=== PATIENT | male | born 1940 | race Caucasian/White ===

== ENCOUNTER 2022-03-21 23:16 | Emergency (ER) | payer MEDICARE, OTHER, SELFPAY ==
[2022-03-21 23:17] VITALS: BP 148/89; PULSE 111; RESP 20; TEMP 36.9; O2SAT 100; BMI 25.7
[2022-03-21 23:33] VITALS: BMI 25.7
--- NOTE | 2022-03-21 23:34 | XR_ITS ---
PROCEDURE INFORMATION: Exam: XR Pelvis Exam date and time: 03/21/2022 11:48 PM Age: 81 years old Clinical indication: Hip pain; Right hip; Prior surgery; Additional info: Leg pain TECHNIQUE: Imaging protocol: Radiologic exam of the pelvis. Views: 1 or 2 view. COMPARISON: CT LUMBAR SPINE WO CON 03/21/2022 11:47 PM FINDINGS: Bones/joints: Right iliac stent. No acute fracture or dislocation. Soft tissues: Unremarkable. Vasculature: Vascular calcifications. IMPRESSION: No acute fracture or dislocation.
--- NOTE | 2022-03-21 23:46 | CT_ITS ---
PROCEDURE INFORMATION: Exam: CT Lumbar Spine Without Contrast Exam date and time: 03/21/2022 11:47 PM Age: 81 years old Clinical indication: Low back pain; Prior surgery; Patient HX: Pain radiating down right leg TECHNIQUE: Imaging protocol: Computed tomography of the lumbar spine without contrast. Radiation optimization: All CT scans at this facility use at least one of these dose optimization techniques: automated exposure control; mA and/or kV adjustment per patient size (includes targeted exams where dose is matched to clinical indication); or iterative reconstruction. COMPARISON: No relevant prior studies available. FINDINGS: Bones/joints: L2-L4 laminectomies. Discs/Spinal canal/Neural foramina: Degenerative changes at L1-L2, L2-L3, and L4-L5 produce moderate spinal stenosis. Advanced degenerative changes of the intervertebral discs at L1-L4. Kidneys and ureters: Low attenuation renal lesions measuring up to 3 cm in diameter are incompletely characterized, but are likely cysts. No followup imaging is warranted. Stomach and bowel: Mild sigmoid diverticulosis without diverticulitis. Appendix: Unremarkable appendix. Urinary bladder: Irregular left urinary bladder wall mass measuring at least 5.8 x 2 cm. Vasculature: Bilateral common iliac arterial stents. The arteries demonstrate severe atherosclerotic disease. Soft tissues: Unremarkable. IMPRESSION: 1. No acute fracture or malalignment of the lumbar spine. 2. Irregular left urinary bladder wall mass measuring at least 5.8 x 2 cm. Malignancy would be most likely. COMMENTS: Consistent with the [employer]'s Incidental Findings Committee white paper (J Am Hoang Radiol 2018): Any incidental renal lesion less than 1 cm or classified as too small to characterize, or any incidental cystic renal lesion characterized as simple-appearing, is likely benign. No follow-up imaging is recommended for these lesions per consensus recommendations based on imaging criteria.
--- NOTE | 2022-03-21 23:49 | PC.NURSE ---
Pt gone to RAD for CT and XRAY
[2022-03-21 23:58] LABS: Alanine Aminotransferase 21 U/L (12-78); Albumin Level 4.5 g/dl (3.5-5.0); Albumin/Globulin Ratio 1.3 (1.1-1.8); Alkaline Phosphatase 80 U/L (38-126); Anion Gap 17.3 mEq/L (5-15); Aspartate Amino Transferase 28 U/L (17-59); Bilirubin,Total 0.4 mg/dl (0.2-1.3); Blood Urea Nitrogen 48 mg/dl (9-20); Calcium 8.9 mg/dl (8.4-10.2); Carbon Dioxide 23 mmol/L (22.0-30.0); Chloride 101 mmol/L (98-107); Creatinine Clearance Estimated 43 mL/min (50-200); Estimated Glomerular Filt Rate 41 ml/min (>60); GFR (African American) 50 ML/MIN (>60); Globulin 3.6 g/dL (1.3-3.2); Glucose 166 mg/dl (74-100); Magnesium 1.7 mg/dl (1.6-2.3); Potassium 4.3 mmoL/L (3.5-5.1); Sodium 137 mmol/L (136-145); Total Protein,Serum 8.1 g/dl (6.3-8.2)
[2022-03-22] LABS: Basophils # 0.1 K/mm3 (0-0.2); Basophils % 1.5 % (0.1-2.0); Eosinophils # 0.1 K/mm3 (0.0-0.4); Eosinophils % 1.3 % (0.1-12.0); Hematocrit 48.6 % (42.0-52.0); Hemoglobin 15.2 g/dL (14.1-18.0); Lymphocytes # 1.3 K/mm3 (0.7-4.5); Lymphocytes % 18.6 % (10-50); Mean Corpuscular HGB Conc 31.3 g/dL (31.8-35.4); Mean Corpuscular Hemoglobin 29.9 pg (27.0-31.2); Mean Corpuscular Volume 95.7 fl (80-94); Mean Platelet Volume 8.4 fl (7.4-10.4); Monocytes # 0.4 K/mm3 (0.1-1.0); Monocytes % 6.2 % (1.7-9.3); Neutrophils # 4.9 K/mm3 (1.8-7.8); Neutrophils % 72.4 % (37.0-80.0); Platelet Count 217 K/mm3 (142-424); Red Blood Count 5.07 M/mm3 (4.60-6.20); White Blood Count 6.7 K/mm3 (4.8-10.8)
--- NOTE | 2022-03-22 | PC.NURSE ---
Pt back from RAD
[2022-03-22 00:03] LABS: C-Reactive Protein 4.3 mg/L (0-4)
[2022-03-22 00:08] VITALS: BP 136/80; PULSE 94; O2SAT 95
--- NOTE | 2022-03-22 00:15 | CT_ITS ---
PROCEDURE INFORMATION: Exam: CT Cervical Spine Without Contrast Exam date and time: 03/22/2022 12:22 AM Age: 81 years old Clinical indication: Neck pain; Additional info: Injury TECHNIQUE: Imaging protocol: Computed tomography of the cervical spine without contrast. Radiation optimization: All CT scans at this facility use at least one of these dose optimization techniques: automated exposure control; mA and/or kV adjustment per patient size (includes targeted exams where dose is matched to clinical indication); or iterative reconstruction. COMPARISON: CR XR SHOULDER RT MIN 2V 03/22/2022 12:12 AM FINDINGS: Bones/joints: No acute fracture. Normal alignment. Discs/Spinal canal/Neural foramina: Degenerative changes at C3-C4 produce severe spinal stenosis. Mastoid air cells: Left mastoidectomy. Salivary glands: Bilateral parotid gland calcifications could be sialoliths. Lungs: Centrilobular emphysema. Soft tissues: Unremarkable. Other findings: Mild anterior subluxation of C4 over C5 likely due to facet arthropathy. IMPRESSION: 1. No acute fracture or malalignment of the cervical spine. 2. Degenerative changes at C3-C4 produce severe spinal stenosis.
--- NOTE | 2022-03-22 00:15 | CT_ITS ---
PROCEDURE INFORMATION: Exam: CT Thoracic Spine Without Contrast Exam date and time: 03/22/2022 12:24 AM Age: 81 years old Clinical indication: Pain in thoracic spine; Additional info: Injury TECHNIQUE: Imaging protocol: Computed tomography of the thoracic spine without contrast. Radiation optimization: All CT scans at this facility use at least one of these dose optimization techniques: automated exposure control; mA and/or kV adjustment per patient size (includes targeted exams where dose is matched to clinical indication); or iterative reconstruction. COMPARISON: CT CERVICAL SPINE WO CON 03/22/2022 12:22 AM FINDINGS: Bones/joints: No acute fracture. Normal alignment. Discs/Spinal canal/Neural foramina: No significant disc protrusion. No severe spinal canal stenosis. No significant neural foraminal narrowing. Soft tissues: Unremarkable. Vasculature: The aorta demonstrates severe atherosclerotic disease. Enlarged pulmonary arteries likely represent chronic pulmonary arterial hypertension. Lungs: Relatively severe centrilobular emphysema. There is a 6 mm right upper lobe nodule image 53 series 4. Bibasilar atelectasis. Patchy right lower lobe opacities may represent aspiration or infection in the appropriate clinical setting. Heart: Coronary artery calcifications. Cardiomegaly. Mitral and aortic valve calcifications. Mediastinum: Stigmata of old granulomatous disease. Gallbladder and bile ducts: Cholelithiasis. IMPRESSION: 1. No acute fracture or malalignment of the thoracic spine. 2. There is a 6 mm right upper lobe nodule image 53 series 4. For patients at low risk (minimal or absent history of smoking and of other known risk factors), recommend CT Chest at 6-12 months, then consider CT Chest at 18-24 months. For patients at high risk (history of smoking or of other known risk factors), recommend CT Chest at 6-12 months, then CT Chest at 18-24 months. (Reference: Jeanne) 3. Patchy right lower lobe opacities may represent aspiration or infection in the appropriate clinical setting. 4. Cholelithiasis. REFERENCES: Jeanne Daniel, et al. Guidelines for Management of Incidental Pulmonary Nodules Detected on CT Images: From the Fleischner Society 2017. Radiology. 2017;284(1):228-243.
[2022-03-22 00:17] LABS: Procalcitonin 0.214 ng/mL (0.0-2.0)
--- NOTE | 2022-03-22 00:17 | XR_ITS ---
PROCEDURE INFORMATION: Exam: XR Right Shoulder Exam date and time: 03/22/2022 12:12 AM Age: 81 years old Clinical indication: Pain; Shoulder; Right; Additional info: Injury TECHNIQUE: Imaging protocol: Radiologic exam of the Right shoulder. Views: 2 or more views. COMPARISON: No relevant prior studies available. FINDINGS: Bones/joints: Status post median sternotomy. No acute fracture or dislocation. Mild calcific tendinosis of the rotator cuff. Soft tissues: Normal. IMPRESSION: 1. No acute fracture or dislocation. 2. Mild calcific tendinosis of the rotator cuff.
--- NOTE | 2022-03-22 00:18 | PC.NURSE ---
Pt gone to RAD for more XRAYs and CTs
[2022-03-22 00:26] LABS: Erythrocyte Sedimentation Rate 16 mm/hr (0-20)
--- NOTE | 2022-03-22 00:33 | PC.NURSE ---
Pt back from RAD
[2022-03-22 00:46] VITALS: BP 128/65; PULSE 113; O2SAT 97
--- NOTE | 2022-03-22 00:46 | PC.NURSE ---
Pt unable to provide urine sample at this time
[2022-03-22 01:10] VITALS: BP 133/72; PULSE 84; O2SAT 96
--- NOTE | 2022-03-22 01:19 | HMH.EDGENADL ---
ED Disposition Clinical Impression: Lumbar radicular pain, Cervical stenosis of spinal canal, Mass of urinary bladder, Weight loss, PVD (peripheral vascular disease) Depression Qualifiers: Depression Type: unspecified Qualified Code(s): F32.A - Depression, unspecified Disposition: Home, Self-Care Condition on Discharge: Fair Instructions: DI for Acute Pain -- Adult Additional Instructions: call pcp and urology in am Prescriptions: predniSONE [Prednisone 20mg Tab] 20 mg PO BID #10 tab Transmission Status: Pending to [id number] Referrals: Alicia Willett APRN [Primary Care Provider] - Dominik Wong MD [Staff Physician] - - Critical Care Critical Care Time: No Attestation: On 03/21/22, the high probability of a clinically significant, sudden or life threatening deterioration of the following system(s) required my full and direct attention, intervention and personal management. The time I documented below is in addition to time spent performing reported procedures but includes the following listed in this critical care notation. Medical Decision Making - Medical Records Medical records reviewed: Yes: I reviewed the patient's medical records. - Francisco Javier Inquiry Pt receiving controlled substance: No Vital Signs: 03/21/22 23:17 03/22/22 00:08 03/22/22 00:46 Temperature 98.5 F Temperature Source Oral Pulse Rate 94 H 113 H Pulse Rate [Left] 111 H Respiratory Rate 20 Blood Pressure 136/80 128/65 Blood Pressure [Right Arm] 148/89 H Blood Pressure Mean 98 Blood Pressure Mean [Right Arm] 108 02 Sat by Pulse Oximetry 100 95 97 Oxygen Delivery Method Room Air Room Air 03/22/22 01:10 Temperature Temperature Source Pulse Rate 84 Pulse Rate [Left] Respiratory Rate Blood Pressure 133/72 Blood Pressure [Right Arm] Blood Pressure Mean Blood Pressure Mean [Right Arm] 02 Sat by Pulse Oximetry 96 Oxygen Delivery Method Room Air - Lab Data Lab results reviewed: Yes: I reviewed the patient's lab results. Lab Results 03/21/22 23:30: WBC 6.7, RBC 5.07, Hgb 15.2, Hct 48.6, MCV 95.7 H, MCH 29.9, MCHC 31.3 L, RDW 15.0, Plt Count 217, MPV 8.4, Neut % (Auto) 72.4, Lymph % (Auto) 18.6, [place] % (Auto) 6.2, Eos % (Auto) 1.3, Baso % (Auto) 1.5, Neut # (Auto) 4.9, Lymph # (Auto) 1.3, [place] # (Auto) 0.4, Eos # (Auto) 0.1, Baso # (Auto) 0.1, ESR 16 03/21/22 23:30: Sodium 137, Potassium 4.3, Chloride 101, Carbon Dioxide 23, Anion Gap 17.3 H, BUN 48 H, Creatinine 1.60 H, Estimated Creat Clear 43, Estimated GFR 41 L, Est GFR ( Amer) 50 L, Glucose 166 H, Calcium 8.9, Magnesium 1.7, Total Bilirubin 0.4, AST 28, ALT 21, Alkaline Phosphatase 80, C-Reactive Protein 4.3 H, Total Protein 8.1, Albumin 4.5, Globulin 3.6 H, Albumin/Globulin Ratio 1.3, Procalcitonin 0.214 Result diagrams: 03/21/22 23:30 03/21/22 23:30 Orders (Tests/Meds): ED MEDICATIONS Generic Name Dose Route Start Last Admin Trade Name Freq PRN Reason Stop Dose Admin Sodium Chloride 1,000 mls @ 999 mls/hr 03/21/22 23:45 03/22/22 00:32 Sod Chlor 0.9% 1000ml Bag IV 03/22/22 00:45 999 mls/hr .Q1H1M MATIAS Administration Sodium Chloride 10 ml 03/21/22 23:34 Sodium Chloride 0.9% 10ml Flush Syringe IV 04/20/22 23:33 NEEDED PRN Maintain IV Site ORDERS Category Date Time Status CT thoracic spine wo con Stat Cat Scan 03/22/22 00:15 Taken Urinalysis and Microscopic Stat Lab 03/21/22 23:34 Ordered - Radiology Data #1 Image(s): Shoulder, Pelvis Image Reviewed: Yes I have reviewed radiologist's interpretation Preliminary Findings: Abnormal - CT Data CT Scan: C-Spine, T-Spine, L-Spine Time Received: 01:[address] Reviewed: Yes: I have viewed the radiologist's interpretation Preliminary Findings: Abnormal (bladder mass ) Medical Decision Narrative: pt with acute lumbar radicular pain - not assoc with act - but has some element of caludication - no cauda equina but has d
[2022-03-22 01:51] VITALS: BP 133/72; PULSE 84; RESP 18; TEMP 36.8; O2SAT 99
== END 2022-03-22 02:04 | disposition home or self-care (01) ==
PROVIDERS: Emergency Provider Emergency Medicine; PCP Nurse Practitioner Family
DX: M54.16 Radiculopathy, lumbar region (principal); M48.02 Spinal stenosis, cervical region; N32.9 Bladder disorder, unspecified; R63.4 Abnormal weight loss; I73.9 Peripheral vascular disease, unspecified; F32.A Depression, unspecified; Z68.25 Body mass index [BMI] 25.0-25.9, adult
CPT/HCPCS: 72125; 72128; 72131; 72170; 73030; 80053; 83735; 84145; 85025; 85651; 86140; 96365; 96375; 99284

== ENCOUNTER 2022-04-19 12:18 | Inpatient (IN) | payer MEDICARE, OTHER, SELFPAY ==
[2022-04-19] VITALS (14 sets, daily range): BP systolic 108–156; BP diastolic 61–91; PULSE 78–108; RESP 13–27; TEMP 36.6–37.2; O2SAT 97–99; BMI 24.1; BMI 24.4; BMI 24.5; BMI 23.6
--- NOTE | 2022-04-19 11:37 | PC.NURSE ---
BLOOD SENT TO LAB
--- NOTE | 2022-04-19 11:55 | XR_ITS ---
FINAL REPORT CLINICAL HISTORY: weakness FINDINGS: A single portable view of the chest was obtained. There are postoperative changes from median sternotomy. The heart size and pulmonary vascularity are within normal limits. The mediastinum is within normal limits. There are bibasilar opacities favoring atelectasis or scarring. The bony thorax is intact. IMPRESSION: Bibasilar opacities favoring atelectasis or scarring. Reviewed, Interpreted and Dictated by Sim Hernandez III, MD Transcribed by Misty Wang Authenticated and . [facility]
--- NOTE | 2022-04-19 11:57 | CT_ITS ---
FINAL REPORT CLINICAL HISTORY: confusion FINDINGS: Axial images of the head were obtained without contrast. Coronal reformatted images were also obtained. This study was performed with techniques to keep radiation doses as low as reasonably achievable (ALARA). Individualized dose reduction techniques using automated exposure control or adjustment of mA and/or kV according to the patient's size were employed. There is generalized age-appropriate atrophy. Periventricular low-attenuation areas are seen consistent with mild chronic ischemic changes. There is no evidence of intracranial hemorrhage or mass. There is no evidence of acute infarct. There is no evidence of shift of the midline structures. No skull abnormality is seen on the bone window images. IMPRESSION: Atrophy and mild periventricular chronic ischemic changes. No acute intracranial abnormality identified. Reviewed, Interpreted and Dictated by Sim Hernandez III, MD Transcribed by Misty Wang Authenticated and . [facility]
[2022-04-19 12:11] LABS: Basophils # 0.2 K/mm3 (0-0.2); Basophils % 2.4 % (0.1-2.0); Eosinophils % 0.2 % (0.1-12.0); Hematocrit 49.5 % (42.0-52.0); Hemoglobin 15.8 g/dL (14.1-18.0); Lymphocytes # 0.9 K/mm3 (0.7-4.5); Lymphocytes % 9.9 % (10-50); Mean Corpuscular Hemoglobin 30.7 pg (27.0-31.2); Mean Platelet Volume 8.6 fl (7.4-10.4); Monocytes # 0.4 K/mm3 (0.1-1.0); Monocytes % 4.4 % (1.7-9.3); Neutrophils # 7.2 K/mm3 (1.8-7.8); Platelet Count 237 K/mm3 (142-424); Red Blood Count 5.16 M/mm3 (4.60-6.20); White Blood Count 8.7 K/mm3 (4.8-10.8)
--- NOTE | 2022-04-19 12:14 | PC.NURSE ---
PT REQUESTING SOMETHING FOR HIS NERVES
[2022-04-19 12:19] LABS: Chloride 103 mmol/L (98-107); Sodium 138 mmol/L (136-145)
[2022-04-19 12:22] LABS: Alanine Aminotransferase 21 U/L (12-78); Albumin Level 4.8 g/dl (3.5-5.0); Alkaline Phosphatase 93 U/L (38-126); Aspartate Amino Transferase 30 U/L (17-59); Bilirubin,Total 1.1 mg/dl (0.2-1.3); Blood Urea Nitrogen 55 mg/dl (9-20); Carbon Dioxide 23 mmol/L (22.0-30.0); Creatinine Clearance Estimated 33 mL/min (50-200); Estimated Glomerular Filt Rate 32 ml/min (>60); GFR (African American) 39 ML/MIN (>60)
[2022-04-19 12:23] LABS: Albumin/Globulin Ratio 1.4 (1.1-1.8); Calcium 9.8 mg/dl (8.4-10.2); Globulin 3.4 g/dL (1.3-3.2); Glucose 108 mg/dl (74-100); Total Protein,Serum 8.2 g/dl (6.3-8.2)
--- NOTE | 2022-04-19 12:27 | HMH.EDGENADL ---
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 The time I documented below is in addition to time spent performing reported procedures but includes the following listed in this critical care notation. Medical Decision Making - Medical Records Medical records reviewed: Yes: I reviewed the patient's medical records. MR Comment: Reviewed emergency department visit note from 1 month ago for the same complaint at this facility. Reviewed associated CT reports, x-ray reports, labs. - Francisco Javier Inquiry Pt receiving controlled substance: No Vital Signs: 04/19/22 11:19 04/19/22 11:30 04/19/22 12:01 Temperature 98 F Temperature Source Oral Pulse Rate 107 H 104 H Pulse Rate [Radial] 108 H Respiratory Rate 16 13 27 H Blood Pressure 109/74 L 114/75 Blood Pressure [Right Arm] 110/91 H Blood Pressure Mean 85 88 Blood Pressure Mean [Right Arm] 97 Blood Pressure Position Blood Pressure Position [Right Arm] Sitting 02 Sat by Pulse Oximetry 98 98 99 Oxygen Delivery Method Room Air 04/19/22 13:01 04/19/22 13:31 04/19/22 14:00 Temperature Temperature Source Pulse Rate 98 H 99 H 97 H Pulse Rate [Radial] Respiratory Rate Blood Pressure 127/75 124/79 138/66 Blood Pressure [Right Arm] Blood Pressure Mean 82 94 90 Blood Pressure Mean [Right Arm] Blood Pressure Position Blood Pressure Position [Right Arm] 02 Sat by Pulse Oximetry 99 97 98 Oxygen Delivery Method Room Air Room Air 04/19/22 14:30 04/19/22 15:01 04/19/22 15:41 Temperature Temperature Source Pulse Rate 96 H 104 H 97 H Pulse Rate [Radial] Respiratory Rate Blood Pressure 132/65 147/70 H 156/90 H Blood Pressure [Right Arm] Blood Pressure Mean 87 80 112 Blood Pressure Mean [Right Arm] Blood Pressure Position Blood Pressure Position [Right Arm] 02 Sat by Pulse Oximetry 97 97 99 Oxygen Delivery Method 04/19/22 16:01 04/19/22 16:31 04/19/22 17:08 Temperature 98 F Temperature Source Oral Pulse Rate 99 H 99 H 78 Pulse Rate [Radial] Respiratory Rate 16 Blood Pressure 126/63 152/72 H 132/71 Blood Pressure [Right Arm] Blood Pressure Mean 84 85 Blood Pressure Mean [Right Arm] Blood Pressure Position Sitting Blood Pressure Position [Right Arm] 02 Sat by Pulse Oximetry 97 98 Oxygen Delivery Method Room Air - Lab Data Lab Results 04/19/22 11:10: WBC 8.7, RBC 5.16, Hgb 15.8, Hct 49.5, MCV 96.0 H, MCH 30.7, MCHC 32.0, RDW 15.0, Plt Count 237, MPV 8.6, Neut % (Auto) 83.0 H, Lymph % (Auto) 9.9 L, [place] % (Auto) 4.4, Eos % (Auto) 0.2, Baso % (Auto) 2.4 H, Neut # (Auto) 7.2, Lymph # (Auto) 0.9, [place] # (Auto) 0.4, Eos # (Auto) 0.0, Baso # (Auto) 0.2 04/19/22 11:10: Sodium 138, Potassium 5.0, Chloride 103, Carbon Dioxide 23, Anion Gap 17.0 H, BUN 55 H, Creatinine 2.00 H, Estimated Creat Clear 33, Estimated GFR 32 L, Est GFR ( Amer) 39 L, Glucose 108 H, Calcium 9.8, Total Bilirubin 1.1, AST 30, ALT 21, Alkaline Phosphatase 93, Troponin I 0.04 H, Total Protein 8.2, Albumin 4.8, Globulin 3.4 H, Albumin/Globulin Ratio 1.4 04/19/22 11:10: APTT 34.4 H 04/19/22 15:00: Troponin I 0.03 04/19/22 15:00: SARS-CoV-2 (PCR) Not detected, Influenza A Untype (PCR) Not detected, Influenza Type B (PCR) Not detected Result diagrams: 04/19/22 11:10 04/19/22 11:10 Orders (Tests/Meds): ED MEDICATIONS Generic Name Dose Route Start Last Admin Trade Name Freq PRN Reason Stop Dose Admin Acetaminophen 650 mg 04/19/22 16:24 Acetaminophen 325mg Tab PO 05/19/22 16:23 Q4HP PRN Fever or Mild Pain Hydrocodone Bitart/Acetaminophen 1 ta
--- NOTE | 2022-04-19 12:30 | PC.NURSE ---
pt to radiology via stretcher with communications technologist
[2022-04-19 12:33] LABS: Troponin I 0.04 ng/ml (0.00-0.034)
--- NOTE | 2022-04-19 12:41 | INFXCTL.NOTE ---
SANDRA RUBIO at for patient eval
--- NOTE | 2022-04-19 12:51 | CT_ITS ---
FINAL REPORT TECHNIQUE: Axial imaging of the pelvis was obtained without contrast.This study was performed with techniques to keep radiation doses as low as reasonably achievable, (ALARA). Individualized dose reduction technique using automated exposure control or adjustment of mA and/or kV according to the patient's size were employed. CLINICAL HISTORY: pain FINDINGS: Motion artifact limits exam sensitivity at the level of the proximal femurs. Bilateral iliac artery stents are in place. There are moderate to severe degenerative changes of the lower lumbar spine. There are moderate degenerative changes of the right hip and mild degenerative changes of the left hip. There is no acute fracture or dislocation. Femoral heads are located bilaterally. Soft tissues demonstrate no acute abnormality. Sacral ala are intact. Bilateral iliac artery stents are in place. There are severe arterial calcifications including near-total calcification of the right common femoral artery. There is a large amount of stool in the rectum worrisome for fecal impaction. IMPRESSION: No acute bony abnormality of the pelvis. 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 Large amount of stool in the rectum worrisome for fecal impaction. Reviewed, Interpreted and Dictated by Sim Hernandez III, MD Transcribed by Enedina Roberts Authenticated and . [facility]
--- NOTE | 2022-04-19 12:51 | CT_ITS ---
FINAL REPORT TECHNIQUE: Thin section axial CT images of the right hip with coronal and sagittal reformats were performed. This study was performed with techniques to keep radiation doses as low as reasonably achievable (ALARA). Individualized dose reduction techniques using automated exposure control or adjustment of mA and/or kV according to the patient''s size were employed. CLINICAL HISTORY: pain FINDINGS: There are no fractures. There are no masses or fluid collections. There are no soft tissue abnormalities. There are moderate degenerative changes. Severe calcification is seen of the common femoral artery, proximal SFA and profundus consistent with high-grade stenosis or occlusion. IMPRESSION: No acute bony abnormality. Moderate to severe degenerative changes. High-grade stenosis or occlusion of the common femoral artery, proximal SFA and profundus. Reviewed, Interpreted and Dictated by Sim Hernandez III, MD Transcribed by Enedina Roberts Authenticated and [facility]
--- NOTE | 2022-04-19 12:57 | ECG_ITS ---
APPROVED REPORT Exam: Resting ECG HR:98 bpm ECG Measurements Heart Rate 98 AXES MA 183 P 63 QRSd 145 QRS 233 QT 372 T 57 QTc 427 Conclusion SINUS RHYTHM INDETERMINATE AXIS RIGHT BUNDLE BRANCH BLOCK AND POSSIBLE RIGHT VENTRICULAR HYPERTROPHY [RBBB, 1.5 mV R IN V1, RAD] LEFT POSTERIOR FASCICULAR BLOCK [QRS AXIS > 109, INFERIOR Q] ABNORMAL ECG UNCONFIRMED REPORT Electronically signed by : Riley Rogers MD 04/20/2022 21:41:17
--- NOTE | 2022-04-19 13:00 | PC.NURSE ---
Friend at BS
--- NOTE | 2022-04-19 14:51 | PC.NURSE ---
DR VARGAS SPEAKING WITH DR SENA
[2022-04-19 15:07] LABS: Coronavirus 19, PCR Not Detected (NotDetected); Influenza A, PCR Not Detected (NotDetected); Influenza B, PCR Not Detected (NotDetected)
--- NOTE | 2022-04-19 15:08 | PC.NURSE ---
spoke with Kenia, Care Management regarding patient admission
--- NOTE | 2022-04-19 15:13 | HMH.PHAHEP ---
[facility] Heparin Dosing - Demographic Data Admission date:: 04/19/22 Date: 04/19/22 Time: 15:13 Allergies/Adverse Reactions: Allergies Allergy/AdvReac Type Severity Reaction Status Date / Time No Known Allergies Allergy Unverified 04/19/22 15:44 Height: 1.83 m Weight: 81.647 kg - Indication Medication therapy:: Heparin Patient Problems: Current Active Problems Lumbar radicular pain (Acute) PVD (peripheral vascular disease) (Acute) Occlusion of common femoral artery (Acute) CVA?: No Bleeding problem?: No Kidney disease?: No IN?: No Additional History:: PVD Desired PTT range:: Other (50-75 SECONDS) - Labs Anticoagulation Lab Results:: 04/19/22 11:10 Hgb 15.8 Hct 49.5 Plt Count 237 - Monitoring Dose Monitor 1 Date: 04/19/22 Time: 15:14 PTT Result:: 04/19/22 @ 15:14 - BASELINE ORDERED, PENDING RESULT 04/19/22 @ 16:00 - BASELINE PTT 34.4 SECONDS Infusion Rate:: INITIATE HEPARIN DRIP AND BOLUS, GIVE 70 UNITS/KG BOLUS IV = 5000 UNIT HEPARIN IV BOLUS ONCE START HEPARIN DRIP AT 1400 UNITS/HOUR = 28 ML/HOUR GIVEN PATIENT WEIGHS GREATER THAN 66 KG. Dose Monitor 2 Date: 04/19/22 Time: 21:30 PTT Result:: 149 SECONDS Infusion Rate:: NIGHTWATCH DECREASED HEPARIN DRIP RATE BY ~3 UNITS/KG/HOUR TO 1200 UNITS/HOUR = 24 ML/HOUR Dose Monitor 3 Date: 04/19/22 Time: 23:29 PTT Result:: 156.7 SECONDS Infusion Rate:: NIGHTWATCH DECREASED HEPARIN DRIP RATE BY 3 UNITS/KG/HOUR TO 950 UNITS/HOUR = 19 ML/HOUR Dose Monitor 4 Date: 04/20/22 Time: 06:00 PTT Result:: 88.2 SECONDS Infusion Rate:: NIGHTWATCH DECREASED HEPARIN DRIP RATE BY ~2 UNITS/KG/HOUR TO 800 UNITS/HOUR = 16 ML/HOUR Dose Monitor 5 Date: 04/20/22 Time: 12:10 PTT Result:: 57.5 SECONDS Infusion Rate:: CONTINUE CURRENT RATE OF 800 UNITS/HOUR = 16 ML/HOUR; PATIENT DOWN TO [employer]. Comment:: PATIENT DOWN TO [employer] AND HAD A PERIPHERAL BARE METAL STENT PLACED. PATIENT RETURNED TO THE FLOOR AND WAS STARTED ON PLAVIX AND ASPIRIN. - Core Measures Is INR > or = 2 at discharge?: No Most Recent Labs:: Laboratory Results - last 24 hr 04/19/22 11:10: WBC 8.7, RBC 5.16, Hgb 15.8, Hct 49.5, MCV 96.0 H, MCH 30.7, MCHC 32.0, RDW 15.0, Plt Count 237, MPV 8.6, Neut % (Auto) 83.0 H, Lymph % (Auto) 9.9 L, [place] % (Auto) 4.4, Eos % (Auto) 0.2, Baso % (Auto) 2.4 H, Neut # (Auto) 7.2, Lymph # (Auto) 0.9, [place] # (Auto) 0.4, Eos # (Auto) 0.0, Baso # (Auto) 0.2 04/19/22 11:10: Sodium 138, Potassium 5.0, Chloride 103, Carbon Dioxide 23, Anion Gap 17.0 H, BUN 55 H, Creatinine 2.00 H, Estimated Creat Clear 33, Estimated GFR 32 L, Est GFR ( Amer) 39 L, Glucose 108 H, Calcium 9.8, Total Bilirubin 1.1, AST 30, ALT 21, Alkaline Phosphatase 93, Troponin I 0.04 H, Total Protein 8.2, Albumin 4.8, Globulin 3.4 H, Albumin/Globulin Ratio 1.4 If INR was < than 2.0 why was therapy stopped?: PERIPHERAL BARE METAL STENT PLACED IN [employer], STARTED ON PLAVIX AND ASA Were Heparin and Warfarin started on the same day?: No If not, why?: PERIPHERAL BARE METAL STENT PLACED IN [employer], STARTED ON PLAVIX AND ASA
[2022-04-19 15:25] LABS: PTT Heparin (inpatient only) 34.4 Seconds (23.6-34.0)
--- NOTE | 2022-04-19 15:42 | PC.NURSE ---
PT AMBULATED TO BR WITH ASSISTANCE
[2022-04-19 15:43] LABS: Troponin I 0.03 ng/ml (0.00-0.034)
--- NOTE | 2022-04-19 15:43 | HMH.PHAINT ---
MEDICATION RECONCILIATION COMPLETED ON PATIENT USING EXTERNAL FILL HISTORY FROM PHARMACY. -LANCE CUMMINS, VLADD
--- NOTE | 2022-04-19 16:29 | P.CONPHA_ITS ---
[facility] Pharmacy VTE Monitoring - Patient Demographics Admission date: 04/19/22 Report Date: 04/19/22 Time: 16:29 Allergies/Adverse Reactions: Patient Allergies No Known Allergies Allergy (Unverified 04/19/22 15:44) Height: 1.83 m Weight: 81.647 kg Patient Problems: Current Active Problems Occlusion of common femoral artery (Acute) - VTE Risk Labs: VTE Related Lab Results Hgb 15.8 g/dL (14.1-18.0) 04/19/22 11:10 Hct 49.5 % (42.0-52.0) 04/19/22 11:10 Plt Count 237 K/mm3 (142-424) 04/19/22 11:10 APTT 34.4 Seconds (23.6-34.0) H 04/19/22 11:10 BUN 55 mg/dl (9-20) H 04/19/22 11:10 Creatinine 2.00 mg/dl (0.66-1.25) H 04/19/22 11:10 Estimated Creat Clear 33 mL/min (50-200) 04/19/22 11:10 - Prophylaxis VTE Prophylaxis Ordered?: Yes Types of VTE Prophylaxis: Pharmacological Pharmacologic Type: Heparin
--- NOTE | 2022-04-19 16:30 | PC.NURSE ---
report called to floor
--- NOTE | 2022-04-19 17:08 | PC.NURSE ---
Pt arrived to the floor at this time
[2022-04-19 18:31] LABS: Troponin I 0.04 ng/ml (0.00-0.034)
--- NOTE | 2022-04-19 19:38 | PC.NURSE ---
patient arrived to unit on heparin drip; tolerating well; no s/s of acute distress noted, VSS, A&O x3, did eat some of dinner, bed at lowest level for safety, call light in reach, will continue to monitor.
--- NOTE | 2022-04-19 22:22 | PC.NURSE ---
pt's aptt critical at 149; notiifed night watch and was instructed by Kaylan Woods to decrease drip to 1200units/hr (from 1400units/hr) and redraw another aptt in one hour; notified MD Diaz with critical result and what night watch stated to do, no new orders at this time
[2022-04-20] VITALS (46 sets, daily range): BP systolic 101–167; BP diastolic 47–104; PULSE 52–104; RESP 16–24; TEMP 36.3–36.7; O2SAT 92–99; BMI 24.3
--- NOTE | 2022-04-20 | PC.NURSE ---
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
--- NOTE | 2022-04-20 | IR_ITS ---
APPROVED REPORT Patient Location: Outpatient Injection Molding Machine Tender: ANSHUL Holder RT (R) PROCEDURES Left femoral arterial access Left femoral artery retrograde angiogram Bare-metal stent deployment to the left common iliac artery Bare-metal stent deployment to the left external iliac artery Bare-metal stent deployment to the left common femoral artery Catheter placement in the right common femoral artery Right femoral artery selective antegrade angiogram Attempted angioplasty to the right common iliac artery INDICATION Critical limb threatening ischemia, Extensive calcification and peripheral artery disease of the left common and external iliac arteries and plaque in critical disease in the left common femoral artery, 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 COMPLICATIONS None Estimated Blood Loss: Less than 10 ML TECHNIQUE 1% lidocaine used to anesthetize the left femoral groin. The left femoral artery was accessed via the Seldinger technique. There was difficulty getting in the heavily calcified artery. A regular J-wire would not traverse the calcification therefore an advantage wire was used to traverse and negotiate through the critical stenoses. Retrograde angiography demonstrated extensive calcification with severe to critical common and external iliac disease. Therapeutic heparin was administered and the 5 [place] sheath was exchanged for a 6 [place] sheath. A 7 mm x 100 mm balloon was deployed up and down the common and external iliac artery as well as brought back into the proximal common femoral artery. Following this an 8 mm x 57 mm bare-metal balloon mounted stent was deployed at 14 mirella reducing the critical stenosis. An additional 8 mm x 100 mm self-expanding stent was placed distal to this extending back into the left common femoral artery. An 8 mm balloon was then placed back in the self-expanding and balloon mounted stent and then deployed at 14 mirella. Eventually there was reduction of the critical disease which allowed a rim catheter to be advanced to the right common iliac artery where right common iliac artery angiography was performed. The rim catheter was advanced over the advantage into the right common femoral artery where antegrade angiography was performed. There was extensive and massive calcification which extended throughout the femoral artery and into the proximal and mid superficial femoral artery. Despite multiple manipulations the calcification cannot be traversed. The apparatus was removed patient was transferred to postop holding area for postoperative care and sheath removal ANGIOGRAPHIC RESULTS The left common iliac artery is extensively calcified critically stenosed greater than 90% and has a stent in the midsegment. The external iliac artery is critically calcified with extensive calcifications and severe disease. The left internal iliac artery is patent. The left common femoral artery has proximal extensive eccentric calcified lesions which are spherical. The right common iliac artery is calcified but patent as is the right external iliac artery. The right internal iliac artery is patent. The right common femoral artery is extensively massively critically calcified throughout which extends down into the proximal and mid superficial femoral artery. IMPRESSION Severe to critical disease to the left iliofemoral system with successful stenting and revascularization of the left iliofemoral system reducing the stenoses with 2 bare-metal stents 1 being balloon mounted to the other being self-expanding Persistent critical disease in the right co
[2022-04-20 00:41] LABS: PTT Heparin (inpatient only) 156.7 Seconds (23.6-34.0)
--- NOTE | 2022-04-20 00:51 | PC.NURSE ---
pt's aPTT result 156.7, notified night watch, Remington with night watch instructed rn to decrease heparin drip rate to 950units/hr and recheck another aPTT in 4 hours, notified MD Diaz of critical lab and what night watch stated to do, no new orders at this time
[2022-04-20 06:22] LABS: Chloride 108 mmol/L (98-107); Potassium 4.7 mmoL/L (3.5-5.1); Sodium 137 mmol/L (136-145)
[2022-04-20 06:25] LABS: Anion Gap 10.7 mEq/L (5-15); Blood Urea Nitrogen 57 mg/dl (9-20); Calcium 8.9 mg/dl (8.4-10.2); Carbon Dioxide 23 mmol/L (22.0-30.0); Creatinine Clearance Estimated 35 mL/min (50-200); Estimated Glomerular Filt Rate 34 ml/min (>60); GFR (African American) 41 ML/MIN (>60); Glucose 112 mg/dl (74-100)
[2022-04-20 06:43] LABS: POC Glucose,Bedside 136 (70-110)
[2022-04-20 06:43] LABS: POC Glucose,Bedside 100 (70-110)
[2022-04-20 06:43] LABS: POC Glucose,Bedside 101 (70-110)
--- NOTE | 2022-04-20 06:54 | PC.NURSE ---
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
[2022-04-20 07:16] LABS: PTT Heparin (inpatient only) 88.2 Seconds (23.6-34.0)
--- NOTE | 2022-04-20 07:22 | PC.NURSE ---
Paged on-call pharmacist Remington, notified of aptt 88.2. told to decrease heparin drip to 800 units/hr and run at 16 ml/hr and repeat aptt in 4 hours
--- NOTE | 2022-04-20 07:39 | PC.NURSE ---
Verified with Awilda Blancharder new rate change to 16 ml/hr
--- NOTE | 2022-04-20 08:54 | HMH.HP ---
*Admission Date: 04/19/22 *Chief complaint: Back pain *History of present illness: 81-year-old male patient presents to the [facility] emergency room via EMS for reports of lower back pain radiating through right buttock into right thigh for 1 month. Family friend is present reports he has been complaining of this for several days and was unable to walk today and EMS was activated. ER physician discussed with Dr. Deleon and he recommends moderate dose heparin drip, admission, he plans to do a cath in the morning. Patient agreeable. Heparin drip started 04/19/2022 abdomen/pelvis CT: FINDINGS: Motion artifact limits exam sensitivity at the level of the proximal femurs. Bilateral iliac artery stents are in place. There are moderate to severe degenerative changes of the lower lumbar spine. There are moderate degenerative changes of the right hip and mild degenerative changes of the left hip. There is no acute fracture or dislocation. Femoral heads are located bilaterally. Soft tissues demonstrate no acute abnormality. Sacral ala are intact. Bilateral iliac artery stents are in place. There are severe arterial calcifications including near-total calcification of the right common femoral artery. There is a large amount of stool in the rectum worrisome for fecal impaction. IMPRESSION: No acute bony abnormality of the pelvis. 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 Large amount of stool in the rectum worrisome for fecal impaction. Reviewed, Interpreted and Dictated by Sim Hernandez III, MD [facility] History I have reviewed the patient's past medical history: Yes Medical History: Reports:: Diabetes Mellitus Type 2, Hyperlipidemia, Hypertension Denies:: Cancer, Diabetes Mellitus Type 1, MRSA *Have you ever received a pneumonia vaccine?: Yes *Have you received a flu vaccine this season?: Yes Other Surgeries: Yes: Cardiac Catheterization Amputation: No Fractures: No - *Social History Last grade of school completed: Some college Smoking Status: Unknown if ever smoked Alcohol Intake: never *Occupational Status:: retired Housing: house Household Members: none *Travel in the last 8 weeks: None Family Hx:: No significant family history Review of Systems - Review of Systems Review of systems:: pertinent systems reviewed and negative unless documented below - Constitutional Denies fatigue, Denies lack of energy - Eyes Denies blurry vision, Denies double vision - ENT Denies poor balance, Denies difficulty swallowing - *Cardiovascular Denies chest pain, Denies chest pain at rest, Denies shortness of breath - *Respiratory Denies change in phlegm color, Denies cough, Denies shortness of breath - *Gastrointestinal Denies abdominal pain, Denies change in stools, Denies nausea - *Musculoskeletal Reports abnormal walking, Reports back pain, Denies muscle weakness - Integumentary/Breasts Denies change in skin color, Denies wounds - *Neurologic Reports abnormal walking, Reports confusion, Reports memory loss, Reports numbness, Reports sensory deficit Comments: Decree sensation feet right greater than left - Psychiatric Reports memory loss, Denies anxiety, Denies hearing things others do not hear, Denies seeing things others do not see - Endocrine Denies cold intolerance, Denies increased thirst - Hematologic/Lymphatic Denies easy bleeding, Denies easy bruising - Allergic/Immunologic Denies GI upset with certain foods, Denies wheezing Meds Home Medications Medication Instructions Recorded Confirmed Type Amlodipine Besylate [Amlodipine 10 mg PO DAILY 03/22/22 04/19/22 History 10mg Tab] Enalapril/Hydrochlorothiazide 1 each PO BID 03/22/22 04/19/22 History [Enalapril-Hctz 10-25 mg Tablet] Hydrocodone/Acetaminophen 1 tab PO QID 03/22/22 04/19/22 History [Hydrocodone-Acetamin 7.5-325] Levothyroxine Sodium [Synthro
--- NOTE | 2022-04-20 10:30 | HMH.CNCARD ---
History of Present Illness Consult date: 04/20/22 Requesting physician: Konstantin Diaz Chief complaint: pain-vascular occlusion Additional Medical History:: Significant past medical history: Hypertension DM2 PAD-bilateral iliac artery stents History of present illness: ER MD OLIVARES narrative: Patient is brought in by ambulance. He is a poor historian. History supplemented by a friend who helps take care of him. Patient reports that he has been having problems with pain which he locates is being in his right buttock area radiating down his right leg for 1 month. Friend reports that he was so bad today he could not get up and walk around. Denies any recent injury. He is on chronic pain medication but is not obtaining enough relief. Patient was seen in this emergency department 1 month ago for exactly the same complaint. Had an extensive work-up including CT of his cervical, lumbar, thoracic spine, x-ray of pelvis and right shoulder. He says he has followed up with his primary care provider, says he was seen last week. Per his previous record he has a known bladder mass. Patient tells me that he does have a history of bladder cancer. Cards note: Patient poor historian information obtained from chart and patient: 81-year-old white male with significant past medical history as noted above presented to ER yesterday with complaints of right hip pain radiating down the lateral right thigh x1 month. Patient denies any prior history of trauma to leg. Describes pain as progressive and worsening especially during ambulation. CT of hip showed moderate generative changes and high-grade stenosis or occlusion of the right common femoral artery, proximal SFA, and profunda. CT of pelvis was negative for any acute bony abnormalities did show possible fecal impaction. Creatinine was initially 2, has improved to 1.9. Troponins negative. Patient admitted for cardiovascular eval. denies any chest pain or shortness of breath [facility] History Medical History: Reports:: Diabetes Mellitus Type 2, Hyperlipidemia, Hypertension Denies:: Cancer, Diabetes Mellitus Type 1, MRSA *Have you ever received a pneumonia vaccine?: Yes *Have you received a flu vaccine this season?: Yes Other Surgeries: Yes: Cardiac Catheterization Amputation: No Fractures: No - *Social History Last grade of school completed: Some college Smoking Status: Unknown if ever smoked Alcohol Intake: never *Occupational Status:: retired Housing: house Household Members: none *Travel in the last 8 weeks: None Family Hx:: No significant family history Meds Home Medications Medication Instructions Recorded Confirmed Type Amlodipine Besylate [Amlodipine 10 mg PO DAILY 03/22/22 04/19/22 History 10mg Tab] Enalapril/Hydrochlorothiazide 1 each PO BID 03/22/22 04/19/22 History [Enalapril-Hctz 10-25 mg Tablet] Hydrocodone/Acetaminophen 1 tab PO QID 03/22/22 04/19/22 History [Hydrocodone-Acetamin 7.5-325] Levothyroxine Sodium [Synthroid 50 mcg PO DAILY 03/22/22 04/19/22 History 50mcg (0.05mg) tab] glipiZIDE [Glipizide ER] 10 mg PO DAILY 03/22/22 04/19/22 History Furosemide [Furosemide 20mg Tab*] 20 mg PO DAILY 04/19/22 04/19/22 History Allergies Allergy/AdvReac Type Severity Reaction Status Date / Time No Known Allergies Allergy Unverified 04/19/22 15:44 Exam Vital signs and Labs for Last 24 Hours: Temp Pulse Resp BP Pulse Ox 98.1 F 80 24 157/80 H 98 04/20/22 08:00 04/20/22 08:00 04/20/22 08:00 04/20/22 08:00 04/20/22 08:00 Laboratory Results - last 24 hr 04/19/22 11:10: WBC 8.7, RBC 5.16, Hgb 15.8, Hct 49.5, MCV 96.0 H, MCH 30.7, MCHC 32.0, RDW 15.0, Plt Count 237, MPV 8.6, Neut % (Auto) 83.0 H, Lymph % (Auto) 9.9 L, [place] % (Auto) 4.4, Eos % (Auto) 0.2, Baso % (Auto) 2.4 H, Neut # (Auto) 7.2, Lymph # (Auto) 0.9, [place] # (Auto) 0.4, Eos # (Auto) 0.0, Baso # (Auto) 0.2 04/19/22 11:10: Sodium 138, Potassium 5.0, Chloride 103, Carbon Diox
[2022-04-20 13:36] LABS: PTT Heparin (inpatient only) 57.5 Seconds (23.6-34.0)
[2022-04-20 14:31] LABS: CATHL Activated Clotting Time 255 SEC (74-125)
[2022-04-20 14:32] LABS: CATHL Activated Clotting Time 110 SEC (74-125)
[2022-04-20 14:45] LABS: POC Glucose,Bedside 97 (70-110)
--- NOTE | 2022-04-20 15:05 | PC.NURSE ---
late entry. rounded on patient before heart cath. no concerns or questions noted. did assist with shaving groin. noted some redness in groin area. no needs voiced.
[2022-04-20 16:19] LABS: POC Glucose,Bedside 88 (70-110)
--- NOTE | 2022-04-20 18:58 | PC.NURSE ---
Patient up from lab analyst, left groin site intact, no evidence of hematoma. VS stable and patient remained on room air.
--- NOTE | 2022-04-20 19:54 | PC.NURSE ---
Patient's ex- Negrita Gibson requested to be called by the doctor to be updated on patient status. her number is [phone]
[2022-04-21] VITALS (10 sets, daily range): BP systolic 107–147; BP diastolic 48–74; PULSE 70–110; RESP 16–20; TEMP 36.5–37; O2SAT 92–97; BMI 24.4
--- NOTE | 2022-04-21 04:00 | PC.NURSE ---
pt rested some through the night with intermittent complaints of pain to RLE buttocks to ankle that comes and goes ; pt rates pain 8/10; pt post cath run off, dressing to right groin CDI with no hematoma or drainage noted, fagan catheter to bsd with dark red urine noted with sediment, reported from previous shift that catheter was hard to insert and pt with enlarged prostate, skin pwd, +pedal pulses noted bilaterally, cap refill <3 sec, pink and warm to touch, pt up to side of bed without difficulty, pt stood at side of bed without difficulty with use of cane and assist x1; telemetry reveals NSR, sinus tach; pt a+o x4; no other issues noted at this time.
[2022-04-21 06:38] LABS: POC Glucose,Bedside 102 (70-110)
[2022-04-21 07:19] LABS: Chloride 112 mmol/L (98-107); Potassium 5.2 mmoL/L (3.5-5.1); Sodium 141 mmol/L (136-145)
[2022-04-21 07:22] LABS: Alanine Aminotransferase 18 U/L (12-78); Albumin Level 3.6 g/dl (3.5-5.0); Albumin/Globulin Ratio 1.3 (1.1-1.8); Alkaline Phosphatase 63 U/L (38-126); Anion Gap 9.2 mEq/L (5-15); Aspartate Amino Transferase 30 U/L (17-59); Bilirubin,Total 0.6 mg/dl (0.2-1.3); Calcium 8.9 mg/dl (8.4-10.2); Carbon Dioxide 25 mmol/L (22.0-30.0); Globulin 2.7 g/dL (1.3-3.2); Glucose 117 mg/dl (74-100); Total Protein,Serum 6.3 g/dl (6.3-8.2)
[2022-04-21 07:27] LABS: Blood Urea Nitrogen 41 mg/dl (9-20); Creatinine Clearance Estimated 47 mL/min (50-200); Estimated Glomerular Filt Rate 48 ml/min (>60); GFR (African American) 59 ML/MIN (>60)
[2022-04-21 07:32] LABS: Basophils % 0.3 % (0.1-2.0); Eosinophils # 0.1 K/mm3 (0.0-0.4); Eosinophils % 0.9 % (0.1-12.0); Hematocrit 39.2 % (42.0-52.0); Hemoglobin 12.6 g/dL (14.1-18.0); Lymphocytes # 0.5 K/mm3 (0.7-4.5); Lymphocytes % 9.3 % (10-50); Mean Corpuscular HGB Conc 32.1 g/dL (31.8-35.4); Mean Corpuscular Hemoglobin 30.3 pg (27.0-31.2); Mean Corpuscular Volume 94.4 fl (80-94); Mean Platelet Volume 8.8 fl (7.4-10.4); Monocytes # 0.5 K/mm3 (0.1-1.0); Monocytes % 8.4 % (1.7-9.3); Neutrophils # 4.4 K/mm3 (1.8-7.8); Neutrophils % 81.1 % (37.0-80.0); Platelet Count 153 K/mm3 (142-424); Red Blood Count 4.15 M/mm3 (4.60-6.20); Red Cell Distribution Width 15.1 % (11.5-17.5); White Blood Count 5.4 K/mm3 (4.8-10.8)
--- NOTE | 2022-04-21 09:00 | PC.NURSE ---
I spoke to Dr. Mejia regarding pt bleeding into fagan cath. Clots noted and it is deep red. He reports he will speak to Dr. Deleon regarding whether we will hold the plavix. awaiting to hear back
--- NOTE | 2022-04-21 09:21 | HMH.ACPN2 ---
Internal Medicine - PN: Subj *Date: 04/21/22 *Time: 09:21 Interval history: pt with sig pvd and off hep but has gross hematuria - pt with improved pain - Exam Vital signs and Labs for Last 24 Hours: Temp Pulse Resp BP Pulse Ox 98.0 F 107 H 18 147/67 H 97 04/21/22 07:55 04/21/22 07:55 04/21/22 07:55 04/21/22 07:55 04/21/22 07:55 Laboratory Results - last 24 hr 04/20/22 11:51: POC Glucose 97 04/20/22 12:10: APTT 57.5 H* 04/20/22 13:32: Activated Clotting Time 110 04/20/22 13:35: Activated Clotting Time 255 H* D 04/20/22 16:06: POC Glucose 88 04/21/22 06:31: POC Glucose 102 04/21/22 06:40: WBC 5.4 D, RBC 4.15 L, Hgb 12.6 L, Hct 39.2 L, MCV 94.4 H, MCH 30.3, MCHC 32.1, RDW 15.1, Plt Count 153 D, MPV 8.8, Neut % (Auto) 81.1 H, Lymph % (Auto) 9.3 L, [place] % (Auto) 8.4, Eos % (Auto) 0.9, Baso % (Auto) 0.3, Neut # (Auto) 4.4, Lymph # (Auto) 0.5 L, [place] # (Auto) 0.5, Eos # (Auto) 0.1, Baso # (Auto) 0.0 04/21/22 06:40: Sodium 141, Potassium 5.2 H, Chloride 112 H, Carbon Dioxide 25, Anion Gap 9.2, BUN 41 H D, Creatinine 1.40 H D, Estimated Creat Clear 47, Estimated GFR 48 L, Est GFR ( Amer) 59 D, Glucose 117 H, Calcium 8.9, Total Bilirubin 0.6, AST 30, ALT 18, Alkaline Phosphatase 63, Total Protein 6.3, Albumin 3.6, Globulin 2.7, Albumin/Globulin Ratio 1.3 I & O for Last 24 hours: Intake & Output 04/18/22 04/19/22 04/20/22 04/21/22 11:59 11:59 11:59 11:59 Intake Total 3281 / 3281 Output Total 2625 / 2625 3000 / 3000 Balance -2625 / -2625 281 / 281 Weight 180 lb 183 lb 1.6 oz 184 lb 1 oz - Constitutional no acute distress - *Routine HEENT Exam Head: Present: normocephalic Eye: Present: EOMI, PERRL ENT: Present: mucous membranes dry - *Routine Neck Exam Absent: JVD - *Routine Respiratory Exam Present: decreased breath sounds - *Routine Cardiovascular Exam Present: RRR, murmur, S4 - *Routine Abdominal Exam Present: soft - *Routine Exam Comments: hematuria in fagan - *Routine Extremities Exam Present: pulses intact. Absent: extremity cold to touch - *Routine Skin Exam Present: intact - *Routine Neurological Exam Present: alert, CN II-XII intact. 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
--- NOTE | 2022-04-21 09:58 | PC.NURSE ---
did not give plavix
--- NOTE | 2022-04-21 10:36 | PC.NURSE ---
pts pulses to ronan feet are strong and palpable. ronan lower ext are warm and no edema is present
[2022-04-21 11:28] LABS: POC Glucose,Bedside 194 (70-110)
--- NOTE | 2022-04-21 11:36 | PC.NURSE ---
pt has been up multiple times to go to the bathroom. he has not had a bowel movement @ this time. i put some barrier cream on his bottom due to soreness. there is nothing open. i put a pillow under him and he reports improvement
[2022-04-21 17:30] LABS: POC Glucose,Bedside 233 (70-110)
[2022-04-22] VITALS (10 sets, daily range): BP systolic 121–145; BP diastolic 66–89; PULSE 70–115; RESP 16–18; TEMP 36.3–36.9; O2SAT 98–99; BMI 24.1
[2022-04-22 02:22] LABS: POC Glucose,Bedside 165 (70-110)
--- NOTE | 2022-04-22 05:07 | PC.NURSE ---
Pt has had an uneventful night. Pt alert and oriented x 4. Pulses to bilateral lower extremities are palpable. No discoloration to BLE. BLE warm to touch. Pt has been up to bathroom with assist. Pt is voiding dark red urine per fagan cath. No clots noted at this time. Pt has rested well this shift. States he feels much better. Call light in reach. Bed alarm on for safety.
[2022-04-22 06:09] LABS: POC Glucose,Bedside 136 (70-110)
--- NOTE | 2022-04-22 07:42 | PC.NURSE ---
pt is agitated this morning. he dislodged his iv and is refusing to let me put a new one back in. will try again after breakfast
--- NOTE | 2022-04-22 09:46 | HMH.ACPN2 ---
Internal Medicine - PN: Subj *Date: 04/23/22 *Time: 06:34 Interval history: doing better - still with hematuria - trial w/o fagan Exam Vital signs and Labs for Last 24 Hours: Temp Pulse Resp BP Pulse Ox 97.6 F 109 H 18 134/89 98 04/22/22 07:41 04/22/22 07:41 04/22/22 07:41 04/22/22 07:41 04/22/22 07:41 Laboratory Results - last 24 hr 04/21/22 11:16: POC Glucose 194 H 04/21/22 16:41: POC Glucose 233 H 04/21/22 21:02: POC Glucose 165 H 04/22/22 06:00: POC Glucose 136 H I & O for Last 24 hours: Intake & Output 04/19/22 04/20/22 04/21/22 04/22/22 11:59 11:59 11:59 11:59 Intake Total 3281 / 3281 1620 / 1620 Output Total 2625 / 2625 3000 / 3000 1500 / 1500 Balance -2625 / -2625 281 / 281 120 / 120 Weight 180 lb 183 lb 1.6 oz 184 lb 1 oz 182 lb 5 oz - Constitutional no acute distress - *Routine HEENT Exam Head: Present: normocephalic Eye: Present: EOMI, PERRL ENT: Present: mucous membranes dry - *Routine Neck Exam Absent: JVD - *Routine Respiratory Exam Present: decreased breath sounds - *Routine Cardiovascular Exam Present: RRR, murmur - *Routine Abdominal Exam Present: soft - *Routine Extremities Exam Absent: calf tenderness - *Routine Skin Exam Present: intact - *Routine Neurological Exam Present: alert, CN II-XII intact - Routine Psychiatric Exam Present: cooperative Assessment and Plan (1) Occlusion of common femoral artery Status: Acute Category: Medical Code(s): I70.209 - Unspecified atherosclerosis of [place] arteries of extremities, unspecified extremity (2) Lumbar radicular pain Status: Acute Category: Medical Code(s): M54.16 - Radiculopathy, lumbar region (3) PVD (peripheral vascular disease) Status: Acute Category: Medical Code(s): I73.9 - Peripheral vascular disease, unspecified (4) 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
[2022-04-22 10:25] LABS: Chloride 109 mmol/L (98-107); Potassium 4.3 mmoL/L (3.5-5.1); Sodium 138 mmol/L (136-145)
[2022-04-22 10:28] LABS: Alanine Aminotransferase 17 U/L (12-78); Albumin Level 3.7 g/dl (3.5-5.0); Albumin/Globulin Ratio 1.4 (1.1-1.8); Alkaline Phosphatase 63 U/L (38-126); Anion Gap 8.3 mEq/L (5-15); Aspartate Amino Transferase 26 U/L (17-59); Bilirubin,Total 0.4 mg/dl (0.2-1.3); Blood Urea Nitrogen 41 mg/dl (9-20); Carbon Dioxide 25 mmol/L (22.0-30.0); Creatinine Clearance Estimated 47 mL/min (50-200); Estimated Glomerular Filt Rate 48 ml/min (>60); GFR (African American) 59 ML/MIN (>60); Globulin 2.6 g/dL (1.3-3.2); Total Protein,Serum 6.3 g/dl (6.3-8.2)
[2022-04-22 10:29] LABS: Calcium 8.8 mg/dl (8.4-10.2); Glucose 174 mg/dl (74-100)
[2022-04-22 10:32] LABS: Basophils % 0.5 % (0.1-2.0); Eosinophils % 0.4 % (0.1-12.0); Hematocrit 38.3 % (42.0-52.0); Hemoglobin 12.3 g/dL (14.1-18.0); Lymphocytes # 0.6 K/mm3 (0.7-4.5); Lymphocytes % 11.1 % (10-50); Mean Corpuscular HGB Conc 32.2 g/dL (31.8-35.4); Mean Corpuscular Hemoglobin 30.5 pg (27.0-31.2); Mean Corpuscular Volume 94.9 fl (80-94); Mean Platelet Volume 8.5 fl (7.4-10.4); Monocytes # 0.4 K/mm3 (0.1-1.0); Neutrophils # 4.5 K/mm3 (1.8-7.8); Platelet Count 145 K/mm3 (142-424); Red Blood Count 4.04 M/mm3 (4.60-6.20); Red Cell Distribution Width 15.1 % (11.5-17.5); White Blood Count 5.6 K/mm3 (4.8-10.8)
--- NOTE | 2022-04-22 17:41 | PC.NURSE ---
pt has not voided since fagan removal @10am. 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
--- NOTE | 2022-04-22 17:51 | PC.NURSE ---
Spoke with . Will continue to monitor pt until approx 2100 to see if he is able to void. if unable will anchor fagan. pt does not want fagan placed @ this time and wants an opportunity to void on his own
--- NOTE | 2022-04-22 19:03 | PC.NURSE ---
lg BM. soft formed
--- NOTE | 2022-04-22 21:30 | PC.NURSE ---
16F coude catheter inserted at this time. slight difficulty with insertion. pt tolerated ok. 625 ml dark red/tea colored urine drained and emptied.
--- NOTE | 2022-04-22 21:39 | PC.NURSE ---
dr rivas called for update on patient regarding voiding, informed dr rivas pt was unable to void and a 16fr coude catheter was inserted with dark brown/red colored urine noted, informed about 700-800ml in fagan bag noted, no new orders received at this time.
[2022-04-22 22:19] LABS: Microscopic, Urine URINE MICROSCOPIC (MICROSCOPIC)
[2022-04-22 22:24] LABS: Appearance,Urine TURBID (Clear); Blood, Urine 3+ (Negative); Color,Urine BROWN (Yellow); Glucose,Urine (UA) Negative (Negative); Ketones,Urine TRACE (Negative); Leukocyte Esterase,Urine 1+ (Negative); Nitrate,Urine POSITIVE (Negative); PH,Urine 6.5 (5.0-8.5); Protein,Urine 2+ (Negative); RBC,Urine TNTC #/hpf (0-3); Specific Gravity, Urine 1.025 (1.005-1.030); Squamous Epithelial Cell,Urine Occasional #/hpf (0-5); WBC,Urine 20-50 #/hpf (0-3)
[2022-04-22 22:25] LABS: Bilirubin,Urine Negative (Negative)
[2022-04-23] VITALS (7 sets, daily range): BP systolic 125–162; BP diastolic 58–80; PULSE 80–125; RESP 18–20; TEMP 36.1–36.7; O2SAT 94–98; BMI 24.0; BMI 23.9
--- NOTE | 2022-04-23 04:19 | PC.NURSE ---
pt has rested well this shift. he is a&o X4. Left femoral cath site dressing in place c/d/i. Bilateral pedis pulses +1 strength. BLE pink, and warm. Pt ambulated to BR with cane and 1 assist last night to attempt to void. coude cath was inserted at 2130, it is draining dark red/tea colored urine. Call light within reach, bed alarm on and functioning, no needs at this time
--- NOTE | 2022-04-23 06:12 | PC.NURSE ---
urine noted to be a brighter red color than the dark red/brown color after insertion. no clots noted.
[2022-04-23 07:09] LABS: Basophils % 0.6 % (0.1-2.0); Eosinophils # 0.1 K/mm3 (0.0-0.4); Eosinophils % 1.6 % (0.1-12.0); Hematocrit 39.3 % (42.0-52.0); Hemoglobin 12.8 g/dL (14.1-18.0); Lymphocytes # 0.8 K/mm3 (0.7-4.5); Mean Corpuscular HGB Conc 32.4 g/dL (31.8-35.4); Mean Corpuscular Hemoglobin 29.9 pg (27.0-31.2); Mean Corpuscular Volume 92.3 fl (80-94); Mean Platelet Volume 9.5 fl (7.4-10.4); Monocytes # 0.4 K/mm3 (0.1-1.0); Monocytes % 8.1 % (1.7-9.3); Neutrophils % 74.6 % (37.0-80.0); Platelet Count 169 K/mm3 (142-424); Red Blood Count 4.26 M/mm3 (4.60-6.20); Red Cell Distribution Width 15.2 % (11.5-17.5); White Blood Count 5.4 K/mm3 (4.8-10.8)
[2022-04-23 07:12] LABS: Anion Gap 10.6 mEq/L (5-15); Blood Urea Nitrogen 39 mg/dl (9-20); Calcium 8.9 mg/dl (8.4-10.2); Carbon Dioxide 22 mmol/L (22.0-30.0); Chloride 107 mmol/L (98-107); Creatinine Clearance Estimated 50 mL/min (50-200); Estimated Glomerular Filt Rate 53 ml/min (>60); GFR (African American) 64 ML/MIN (>60); Glucose 152 mg/dl (74-100); Potassium 4.6 mmoL/L (3.5-5.1); Sodium 135 mmol/L (136-145)
--- NOTE | 2022-04-23 09:49 | FL_ITS ---
FINAL REPORT TECHNIQUE: Approximately 150 mL of Cystografin contrast was administered through the patient's existing Liu catheter. Spot and overhead films were performed. A total of 19 images were saved. CLINICAL HISTORY: . HEMATURIA 150ML CYSTOGRAFFIN 2:15 FLUORO TIME COMPARISON: None. FINDINGS: Safety Professional film demonstrates significant vascular calcifications. The urinary bladder is extremely trabeculated. There is no leak of contrast identified. There is significant reflux of contrast into the left ureter and into the left kidney. The urethra is not evaluated on this examination. Fluoroscopy time: 2 minutes 15 seconds. IMPRESSION: Trabeculated appearance of the urinary bladder. Significance left-sided reflux. No leak of contrast. Reviewed, Interpreted and Dictated by Sim Hernandez III, MD Transcribed by Angie Saldana PA-C Authenticated and [facility]
--- NOTE | 2022-04-23 09:49 | HMH.ACPN2 ---
Internal Medicine - PN: Subj *Date: 04/23/22 *Time: 13:01 Interval history: oob in chair with fagan with hematuria - had retention after trial yesterday w/o fagan - labs ok - cystogram today showed changes and prev ct showed possible lt sided bladder wall thickening Exam Vital signs and Labs for Last 24 Hours: Temp Pulse Resp BP Pulse Ox 98 F 125 H 20 157/80 H 96 04/23/22 08:00 04/23/22 08:00 04/23/22 08:00 04/23/22 08:00 04/23/22 08:00 Laboratory Results - last 24 hr 04/22/22 10:00: WBC 5.6, RBC 4.04 L, Hgb 12.3 L, Hct 38.3 L, MCV 94.9 H, MCH 30.5, MCHC 32.2, RDW 15.1, Plt Count 145, MPV 8.5, Neut % (Auto) 80.0, Lymph % (Auto) 11.1, [place] % (Auto) 8.0, Eos % (Auto) 0.4, Baso % (Auto) 0.5, Neut # (Auto) 4.5, Lymph # (Auto) 0.6 L, [place] # (Auto) 0.4, Eos # (Auto) 0.0, Baso # (Auto) 0.0 04/22/22 10:00: Sodium 138, Potassium 4.3, Chloride 109 H, Carbon Dioxide 25, Anion Gap 8.3, BUN 41 H, Creatinine 1.40 H, Estimated Creat Clear 47, Estimated GFR 48 L, Est GFR ( Amer) 59, Glucose 174 H, Calcium 8.8, Total Bilirubin 0.4, AST 26, ALT 17, Alkaline Phosphatase 63, Total Protein 6.3, Albumin 3.7, Globulin 2.6, Albumin/Globulin Ratio 1.4 04/22/22 21:40: Urine Color Brown, Urine Appearance Turbid, Urine pH 6.5, Ur Specific [place] 1.025, Urine Protein 2+, Urine Glucose (UA) Negative, Urine Ketones Trace, Urine Blood 3+, Urine Nitrate Positive, Urine Bilirubin Negative, Urine Urobilinogen 2.0, Ur Leukocyte Esterase 1+ A, Urine RBC Tntc, Urine WBC 20-50, Ur Squamous Epith Cells Occasional 04/23/22 06:55: WBC 5.4, RBC 4.26 L, Hgb 12.8 L, Hct 39.3 L, MCV 92.3, MCH 29.9, MCHC 32.4, RDW 15.2, Plt Count 169, MPV 9.5, Neut % (Auto) 74.6, Lymph % (Auto) 15.0, [place] % (Auto) 8.1, Eos % (Auto) 1.6, Baso % (Auto) 0.6, Neut # (Auto) 4.0, Lymph # (Auto) 0.8, [place] # (Auto) 0.4, Eos # (Auto) 0.1, Baso # (Auto) 0.0 04/23/22 06:55: Sodium 135 L, Potassium 4.6, Chloride 107, Carbon Dioxide 22, Anion Gap 10.6, BUN 39 H, Creatinine 1.30 H, Estimated Creat Clear 50, Estimated GFR 53 L, Est GFR ( Amer) 64, Glucose 152 H, Calcium 8.9 I & O for Last 24 hours: Intake & Output 04/20/22 04/21/22 04/22/22 04/23/22 11:59 11:59 11:59 11:59 Intake Total 3281 / 3281 1860 / 1860 2016 Output Total 2625 / 2625 3000 / 3000 2700 / 2700 2625 / 2625 Balance -2625 / -2625 281 / 281 -840 / -840 -608 / -608 Weight 183 lb 1.6 oz 184 lb 1 oz 182 lb 5 oz 180 lb 12.465 oz - Constitutional no acute distress - *Routine HEENT Exam Head: Present: normocephalic Eye: Present: EOMI, PERRL ENT: Present: mucous membranes dry - *Routine Neck Exam Absent: JVD - *Routine Respiratory Exam Present: CTA bilaterally - *Routine Cardiovascular Exam Present: RRR, murmur, S4 - *Routine Abdominal Exam Present: soft - *Routine Extremities Exam Absent: calf tenderness - *Routine Skin Exam Present: intact - *Routine Neurological Exam Present: alert, CN II-XII intact - Routine Psychiatric Exam Present: cooperative Assessment and Plan (1) Occlusion of common femoral artery Status: Acute Category: Medical Code(s): I70.209 - Unspecified atherosclerosis of [place] arteries of extremities, unspecified extremity (2) Lumbar radicular pain Status: Acute Category: Medical Code(s): M54.16 - Radiculopathy, lumbar region (3) PVD (peripheral vascular disease) Status: Acute Category: Medical Code(s): I73.9 - Peripheral vascular disease, unspecified (4) 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
--- NOTE | 2022-04-23 10:29 | HMH.PNCARD ---
<Lila Newell - Last Filed: 04/23/22 10:56> Subjective Date: 04/23/22 Time: 10:00 Principal diagnosis: PAD Interval history: This is an 81-year-old white gentleman who presented to the emergency department with complaints of pain in his right buttocks that was radiating down the lateral right thigh. He states that this had significantly worsened over the last month. The patient underwent runoff with Dr. Deleon and he was able to stent his left iliofemoral system with 2 bare-metal stents. However the patient had persistent right common femoral and right SFA disease that was not amendable to percutaneous intervention. Dr. Deleon does not feel like this will be able to be intervened on surgically as well. The patient may ultimately end up with a right [id number]-yrw-frce amputation. This morning he is still complaining of numbness in the right buttocks going down his right leg. He denies any chest pain or pressure. He denies any shortness of breath or edema. He denies any fever, chills, nausea, vomiting, diarrhea, PND or orthopnea. The patient does have hematuria noted. He reported to have a known bladder mass with a history of bladder cancer. Exam Vital signs and Labs for Last 24 Hours: Temp Pulse Resp BP Pulse Ox 98 F 125 H 20 157/80 H 96 04/23/22 08:00 04/23/22 08:00 04/23/22 08:00 04/23/22 08:00 04/23/22 08:00 Laboratory Results - last 24 hr 04/22/22 10:00: WBC 5.6, RBC 4.04 L, Hgb 12.3 L, Hct 38.3 L, MCV 94.9 H, MCH 30.5, MCHC 32.2, RDW 15.1, Plt Count 145, MPV 8.5, Neut % (Auto) 80.0, Lymph % (Auto) 11.1, [place] % (Auto) 8.0, Eos % (Auto) 0.4, Baso % (Auto) 0.5, Neut # (Auto) 4.5, Lymph # (Auto) 0.6 L, [place] # (Auto) 0.4, Eos # (Auto) 0.0, Baso # (Auto) 0.0 04/22/22 10:00: Carbon Dioxide 25, Anion Gap 8.3, BUN 41 H, Creatinine 1.40 H, Estimated Creat Clear 47, Estimated GFR 48 L, Est GFR ( Amer) 59, Glucose 174 H, Calcium 8.8, Total Bilirubin 0.4, AST 26, ALT 17, Alkaline Phosphatase 63, Total Protein 6.3, Albumin 3.7, Globulin 2.6, Albumin/Globulin Ratio 1.4 04/22/22 21:40: Urine Color Brown, Urine Appearance Turbid, Urine pH 6.5, Ur Specific [place] 1.025, Urine Protein 2+, Urine Glucose (UA) Negative, Urine Ketones Trace, Urine Blood 3+, Urine Nitrate Positive, Urine Bilirubin Negative, Urine Urobilinogen 2.0, Ur Leukocyte Esterase 1+ A, Urine RBC Tntc, Urine WBC 20-50, Ur Squamous Epith Cells Occasional 04/23/22 06:55: WBC 5.4, RBC 4.26 L, Hgb 12.8 L, Hct 39.3 L, MCV 92.3, MCH 29.9, MCHC 32.4, RDW 15.2, Plt Count 169, MPV 9.5, Neut % (Auto) 74.6, Lymph % (Auto) 15.0, [place] % (Auto) 8.1, Eos % (Auto) 1.6, Baso % (Auto) 0.6, Neut # (Auto) 4.0, Lymph # (Auto) 0.8, [place] # (Auto) 0.4, Eos # (Auto) 0.1, Baso # (Auto) 0.0 04/23/22 06:55: Sodium 135 L, Potassium 4.6, Chloride 107, Carbon Dioxide 22, Anion Gap 10.6, BUN 39 H, Creatinine 1.30 H, Estimated Creat Clear 50, Estimated GFR 53 L, Est GFR ( Amer) 64, Glucose 152 H, Calcium 8.9 I & O for Last 24 hours: Intake & Output 04/20/22 04/21/22 04/22/22 04/23/22 23:59 23:59 23:59 23:59 Intake Total 1789 / 1789 2212 / 2212 2260 / 2260 897 / 897 Output Total 2950 / 3650 2800 / 2800 2225 / 2725 1999 Balance -1161 / -1861 -588 / -588 35 / -465 -1103 / -1103 Weight 183 lb 1.6 oz 184 lb 1 oz 182 lb 5 oz 180 lb 12.465 oz - Constitutional no acute distress, average body habitus - *Routine HEENT Exam Head: Present: normocephalic, atraumatic Eye: Present: EOMI, PERRL ENT: Present: mucous membranes moist - *Routine Neck Exam Present: supple, full ROM, normal carotid upstroke. Absent: JVD, carotid bruit, lymphadenopathy - *Routine Respiratory Exam Present: CTA bilaterally - *Routine Cardiovascular Exam Present: RRR, Normal S1, Normal S2. Absent: murmur - *Routine Abdominal Exam Present: soft, normoactive bowel sounds. Absent: tenderness, distended - *Routine Extremities Exam Present: full ROM, pulses intact (Diminished pedal pulses bilaterally), no
--- NOTE | 2022-04-23 11:29 | HMH.OTEV ---
OT Inpatient Evaluation Rehab OT IP Evaluation Start: 04/23/22 08:26 Freq: ONCE Status: Complete Protocol: Document 04/23/22 11:23 MARQUISJONNY (Rec: 04/23/22 11:29 MARQUISJONNY [id number]) Rehab OT IP Assessment Subjective History 81-year-old male patient presents to the [facility] emergency room via EMS for reports of lower back pain radiating through right buttock into right thigh for 1 month. Family friend is present reports he has been complaining of this for several days and was unable to walk today and EMS was activated. ER physician discussed with Dr Stevie Deleon and he recommends moderate dose heparin drip, admission, he plans to do a cath in the morning. Patient agreeable. Heparin drip started 04/19/2022 abdomen/pelvis CT: FINDINGS: Motion artifact limits exam sensitivity at the level of the proximal femurs. Bilateral iliac artery stents are in place. There are moderate to severe degenerative changes of the lower lumbar spine. There are moderate degenerative changes of the right hip and mild degenerative changes of the left hip. There is no acute fracture or dislocation. Femoral heads are located bilaterally. Soft tissues demonstrate no acute abnormality. Sacral ala are intact. Bilateral iliac artery stents are in place. There are severe arterial calcifications including near-tot
--- NOTE | 2022-04-23 11:39 | HMH.PTEV ---
Physical Therapy Evaluation Rehab PT IP Evaluation Start: 04/23/22 08:25 Freq: ONCE Status: Active Protocol: Document 04/23/22 11:23 MERLINE (Rec: 04/23/22 11:38 MERLINE [id number]) Subjective/History History History This is the initial IP PT eval for Patrick Gibson, a 81 y/o male. Pt was admitted to [facility] via EMS to which he reported low back pain, with radiating pain into RLE. CT findings of high-grade stenosis or occlusion of R common femoral artery. PT has h/o DM Type II, hyperlipidemia , and hypertension. Written by Vicki Al, QING Subjective Subjective Pt required redirection when taking Hx. Pt reports he is living alone in a first-story apartment. Reports he has family members check in on him , but not consistently. Pt reported that he has been looking into transitioning to assisted living facility. Prior to admission, pt used a cane. Rehab PT IP Eval Objective Appearance Patient Behavior Cooperative,Distractible, Talkative,Wandering Patient Orientation Person,Place,Year,Situation Difficulty following instructions none Speech Pattern Clear,Rambling Ambulation Patient Able to Ambulate Yes Ambulation Observation IP General Gait Pattern Observation Wide Based Gait,Shuffling Step Ambulation Distance (feet) 20 Ambulation Assistive Device Straight Cane Ambulation Ability Minimal x 2 (25% assist) Balance Ability to Arise Able, uses arms to help Sitting Balance Steady, safe Standing Balance Steady, wide stance Dynamic Sitting Balance Ability Fair Dynamic Standing Balance Ability Fair Transfers Chair Transfer Ability Independent,Supervision/Stand by Sit to Stand Chair Transfer Ability Minimal x 2 (25% assist) Rehab PT IP prob,goals,plan Problems Date of Evaluation: 04/23/22 PT IP Problems Transfers,Gait,Balance,Self care,Safety Rehab Potential Rehab Potential Fair Equipment Needs Assistive Devices Straight Cane Plan PT Intervention Plan Transfers,Gait,Balance
--- NOTE | 2022-04-23 11:56 | SW/DCPLANNER ---
Addendum entered by Awilda Engle 04/24/22 14:59: I have also faxed patient information to [facility] to see if patient is a candidate for meals at home. Addendum entered by Awilda Engle 04/24/22 11:45: Chani gayle/ [facility] stated that services will begin 04/26/22. Addendum entered by Awilda Engle 04/24/22 10:30: Patient information/order has been faxed to Chani gayle/ [facility] home health services. The plan for this patient is to discharge home today. I will follow up with Chani once patient information is reviewed. Original Note: I spoke with this patient regarding plans once medically stable for discharge. Patient stated that he resides in first floor apartment alone with friends and neighbors that check on his often. PT evaluated this patient this AM and has recommended home health services. Patient is agreeable to home health once medically stable for discharge. Patient could potentially discharge later today. Patient did have a friend present at time of my visit that he stated himself and his check on patient often. Patient stated that he will have transportation home once medically stable for discharge. I will set up home health services at time of discharge. Friend: Ryan Linares [phone]
--- NOTE | 2022-04-23 13:19 | ECG_ITS ---
APPROVED REPORT Exam: Resting ECG HR:97 bpm ECG Measurements Heart Rate 97 AXES ME 169 P 81 QRSd 138 QRS 198 QT 360 T 34 QTc 415 Conclusion SINUS RHYTHM RIGHT AXIS DEVIATION [QRS AXIS > 100] RIGHT BUNDLE BRANCH BLOCK [120+ ms QRS DURATION, UPRIGHT V1, 40+ ms S IN I/aVL/V4/V5/V6] POSSIBLE ANTERIOR MYOCARDIAL INFARCTION , OF INDETERMINATE AGE [30 ms Q WAVE IN V3/V4, OR R < 0.2 mV IN V4] ABNORMAL ECG UNCONFIRMED REPORT Electronically signed by : Riley Rogers MD 04/24/2022 13:52:21
--- NOTE | 2022-04-23 14:53 | PC.NURSE ---
SRNA Note: Asked pt. how he felt about getting cleaned up since all his guest are gone. Pt. responded back and stated i actually had a good shower yesterday and i am really worn out Will check back in with Pt.
--- NOTE | 2022-04-23 15:17 | PC.NURSE ---
rounded on patient. patient is up to chair with clip alarm in place/ educated automation operator light. assisted patient with folding blankets down in bed. patient has no questions or concerns states i am in good shape . Is in good spirits about being more mobile. no needs at this time. reiterated use of call light with any needs or concerns.
[2022-04-24] VITALS: BP 155/72; PULSE 80; PULSE 85; RESP 18; TEMP 36.7; O2SAT 95
[2022-04-24 01:38] LABS: POC Glucose,Bedside 165 (70-110)
--- NOTE | 2022-04-24 03:42 | PC.NURSE ---
Addendum entered by Mikala Ha, RNA 04/24/22 03:51: Pt abdomen non tender and soft, bowel sounds active. Pt O2 sat >95% on room air. Lung sounds are clear. Original Note: Pt is alert and oriented x4, pt is very talkative and pleasant. Pt has complained of pain 2 times this shift, treated per mar. Pt seemed anxious and restless at beginning of shift, but has been resting through the night. Bed alarm on and functioning. Pt has weakness in the RLE. BLE warm and pedal pulses bounding. Pt left femoral cath site, dressing CDI. Liu in place and draining, bright to dark red in color, no clots noted. Pt ambulated with cane and x1 assist from chair to bed. Call light on and functioning.
[2022-04-24 04:00] VITALS: BP 131/77; PULSE 80; PULSE 96; RESP 17; TEMP 36.7; O2SAT 95
[2022-04-24 04:43] VITALS: BMI 24.2
[2022-04-24 07:33] VITALS: BP 144/68; PULSE 86; RESP 21; TEMP 36.9; O2SAT 96
[2022-04-24 08:04] VITALS: PULSE 112
--- NOTE | 2022-04-24 08:57 | HMH.DCSUM ---
General - General Admission date:: 04/19/22 Discharge date: 04/24/22 HPI HPI: 81-year-old male patient presents to the [facility] emergency room via EMS for reports of lower back pain radiating through right buttock into right thigh for 1 month. Family friend is present reports he has been complaining of this for several days and was unable to walk today and EMS was activated. ER physician discussed with Dr. Deleon and he recommends moderate dose heparin drip, admission, he plans to do a cath in the morning. Patient agreeable. Heparin drip started 04/19/2022 abdomen/pelvis CT: FINDINGS: Motion artifact limits exam sensitivity at the level of the proximal femurs. Bilateral iliac artery stents are in place. There are moderate to severe degenerative changes of the lower lumbar spine. There are moderate degenerative changes of the right hip and mild degenerative changes of the left hip. There is no acute fracture or dislocation. Femoral heads are located bilaterally. Soft tissues demonstrate no acute abnormality. Sacral ala are intact. Bilateral iliac artery stents are in place. There are severe arterial calcifications including near-total calcification of the right common femoral artery. There is a large amount of stool in the rectum worrisome for fecal impaction. IMPRESSION: No acute bony abnormality of the pelvis. 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 Large amount of stool in the rectum worrisome for fecal impaction. Reviewed, Interpreted and Dictated by Sim Hernandez III, MD Hospital Course Hospital Course: 81-year-old male patient presents to the [facility] emergency room via EMS for reports of lower back pain radiating through right buttock into right thigh for 1 month. Family friend is present reports he has been complaining of this for several days and was unable to walk today and EMS was activated. Heparin drip started 04/19/2022 abdomen/pelvis CT: FINDINGS: Motion artifact limits exam sensitivity at the level of the proximal femurs. Bilateral iliac artery stents are in place. There are moderate to severe degenerative changes of the lower lumbar spine. There are moderate degenerative changes of the right hip and mild degenerative changes of the left hip. There is no acute fracture or dislocation. Femoral heads are located bilaterally. Soft tissues demonstrate no acute abnormality. Sacral ala are intact. Bilateral iliac artery stents are in place. There are severe arterial calcifications including near-total calcification of the right common femoral artery. There is a large amount of stool in the rectum worrisome for fecal impaction. IMPRESSION: No acute bony abnormality of the pelvis. 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 Large amount of stool in the rectum worrisome for fecal impaction. Reviewed, Interpreted and Dictated by Sim Hernandez III, MD 04/20/2022 interventional vascular procedure: ANGIOGRAPHIC RESULTS The left common iliac artery is extensively calcified critically stenosed greater than 90% and has a stent in the midsegment. The external iliac artery is critically calcified with extensive calcifications and severe disease. The left internal iliac artery is patent. The left common femoral artery has proximal extensive eccentric calcified lesions which are spherical. The right common iliac artery is calcified but patent as is the right external iliac artery. The right internal iliac artery is patent. The right common femoral artery is extensively massively critically calcified throughout which extends down into the proximal and mid superficial femoral artery. IMPRESSION Severe to critical disease to the left iliofemoral system with successful stenting and revascularization of the left iliofemora
--- NOTE | 2022-04-24 10:11 | PC.NURSE ---
Rounded on pt, cleaned and straightened room. Pt up to chair, no needs voiced at this time.
--- NOTE | 2022-04-24 10:50 | PC.NURSE ---
Addendum entered by Awilda Cross RN 04/24/22 12:46: verified on morning rounds with dr rivas that patient would discharge with the fagan and have follow up made with dr. connors. Original Note: morning rounds with md. md is aware patient heart rate is elevated with any sort of activitiy. while md is in room noted to have a heart rate greater than 130. after speaking with cardiology md decided to send patient home with bisoprolol 5 mg, did verify with pratik rodriguez that it would be okay to give patient a dose before discharge. patient eager to go home. no complaints or concerns at that time.
--- NOTE | 2022-04-24 10:50 | HMH.PHAINT ---
DISCHARGE MEDICATION COUNSELING PROVIDED. DISCUSSED ADDITION OF BISOPROLOL. WATCH FOR DIZZNESS, LIGHTHEADEDNESS, SLOWED HEART RATE. PATIENT VERBALIZED NO QUESTIONS AT THIS TIME.
[2022-04-24 12:03] LABS: POC Glucose,Bedside 139 (70-110)
--- NOTE | 2022-04-24 13:05 | PC.NURSE ---
Patient educated on how to empty catheter bag as well as leg catheter bag. Patient educated on how to switch original and leg catheter bags out as patient requested to keep original catheter bag attached during discharge. Leg bag sent home with patient as well as a clean urinal to use for draining catheter bags. Patient educated on why he needs to keep catheter bag until he can see Marvin in follow-up visit scheduled for 05/04/22. Patient educated on how to keep catheter site clean and importance of preventing further infection and risks of UTI's associated with catheters. Patient educated on discharge paperwork as well as how to care for groin site from angio run-off and how to monitor for signs of infection. All questions asked by patient answered.
--- NOTE | 2022-04-25 11:38 | SW/DCPLANNER ---
Addendum entered by Awilda Engle 04/25/22 14:43: This patient will admit to [facility] today per Alma gayle/ Satish Lee. I have updated MD, patient and friend. Original Note: Patient discharged from hospital yesterday to return home with home health services. Patient's friend (Cordell Peralta [phone]) has called Dr Mejia's office stating that patient is needing placement. I called patient and he is agreeable to placement at [facility] or [facility]. Patient information has been faxed to both SNF places at this time. I will follow up with [facility] and [facility] once patient information is reviewed.
== END 2022-04-24 13:13 | disposition home or self-care (01) | DRG 253 ==
LOC: ER 15:09 → 2ND 16:59
PROVIDERS: Emergency Medicine; Internal Medicine; Internal Medicine Adolescent Medicine; Physician Assistant; Admitting Provider Family Medicine; Emergency Provider Emergency Medicine; Visit Provider Family Medicine
PROC: 047D34Z Dilation of Left Common Iliac Artery with Drug-eluting Intraluminal Device, Percutaneous Approach (ICD-10-PCS; principal; 2022-04-20 13:00)
DX: I70.223 Atherosclerosis of native arteries of extremities with rest pain, bilateral legs (principal); I70.92 Chronic total occlusion of artery of the extremities; N17.9 Acute kidney failure, unspecified; E78.5 Hyperlipidemia, unspecified; I10 Essential (primary) hypertension; M54.16 Radiculopathy, lumbar region; E11.51 Type 2 diabetes mellitus with diabetic peripheral angiopathy without gangrene; Z79.84 Long term (current) use of oral hypoglycemic drugs; R31.0 Gross hematuria; I77.1 Stricture of artery; R31.9 Hematuria, unspecified; N13.70 Vesicoureteral-reflux, unspecified; M15.9 Polyosteoarthritis, unspecified
CPT/HCPCS: 37221; 37226; 37223; 36415; 70450; 71045; 72192; 73700; 74430; 80048; 80053; 81001; 82962; 84484; 85025; 85347; 85730; 87086; 93005; 97116; 97161; 97165; 97530; 99152; 99153; 99285; C1725; C1769; C1876; C1894; C9803; J0696; J1644; Q9967; U0003; U0005

== ENCOUNTER → 2022-05-15 10:51 | Outpatient (CLI) | payer MEDICARE, OTHER, SELFPAY ==
[2022-05-15 11:31] LABS: Basophils # 0.1 K/mm3 (0-0.2); Basophils % 0.5 % (0.1-2.0); Eosinophils # 0.1 K/mm3 (0.0-0.4); Eosinophils % 0.7 % (0.1-12.0); Hematocrit 38.3 % (42.0-52.0); Hemoglobin 12.3 g/dL (14.1-18.0); Lymphocytes % 8.9 % (10-50); Mean Corpuscular HGB Conc 32.1 g/dL (31.8-35.4); Mean Corpuscular Hemoglobin 30.1 pg (27.0-31.2); Mean Corpuscular Volume 93.9 fl (80-94); Mean Platelet Volume 9.2 fl (7.4-10.4); Monocytes # 0.6 K/mm3 (0.1-1.0); Monocytes % 5.3 % (1.7-9.3); Neutrophils # 9.1 K/mm3 (1.8-7.8); Neutrophils % 84.7 % (37.0-80.0); Platelet Count 318 K/mm3 (142-424); Red Blood Count 4.08 M/mm3 (4.60-6.20); Red Cell Distribution Width 15.3 % (11.5-17.5); White Blood Count 10.7 K/mm3 (4.8-10.8)
[2022-05-15 12:35] LABS: Alanine Aminotransferase 21 U/L (12-78); Albumin Level 3.7 g/dl (3.5-5.0); Albumin/Globulin Ratio 1.4 (1.1-1.8); Alkaline Phosphatase 92 U/L (38-126); Anion Gap 15.4 mEq/L (5-15); Aspartate Amino Transferase 28 U/L (17-59); Bilirubin,Total 0.7 mg/dl (0.2-1.3); Calcium 8.9 mg/dl (8.4-10.2); Carbon Dioxide 28 mmol/L (22.0-30.0); Chloride 97 mmol/L (98-107); Estimated Glomerular Filt Rate 20 ml/min (>60); GFR (African American) 24 ML/MIN (>60); Globulin 2.6 g/dL (1.3-3.2); Glucose 145 mg/dl (74-100); Potassium 5.4 mmoL/L (3.5-5.1); Sodium 135 mmol/L (136-145); Total Protein,Serum 6.3 g/dl (6.3-8.2)
[2022-05-15 14:03] LABS: Blood Urea Nitrogen 115 mg/dl (9-20)
== END ==
PROVIDERS: PCP Emergency Medicine; Visit Provider Emergency Medicine
DX: I25.10 Atherosclerotic heart disease of native coronary artery without angina pectoris (principal)
CPT/HCPCS: 80053; 85025

== ENCOUNTER → 2022-05-29 16:53 | Outpatient (CLI) | payer MEDICARE, OTHER, SELFPAY ==
[2022-05-29 17:47] LABS: Microscopic, Urine URINE MICROSCOPIC (MICROSCOPIC)
[2022-05-29 18:07] LABS: Appearance,Urine CLEAR (Clear); Bilirubin,Urine Negative (Negative); Blood, Urine 3+ (Negative); Color,Urine YELLOW (Yellow); Glucose,Urine (UA) Negative (Negative); Ketones,Urine Negative (Negative); Leukocyte Esterase,Urine 3+ (Negative); Nitrate,Urine Negative (Negative); Protein,Urine 1+ (Negative); Urobilinogen,Urine 0.2 EU/dl (0.2)
[2022-05-29 19:43] LABS: Bacteria,Urine 1+ /lpf; Squamous Epithelial Cell,Urine Occasional #/hpf (0-5); WBC,Urine TNTC #/hpf (0-3)
== END ==
PROVIDERS: PCP Emergency Medicine; Visit Provider Emergency Medicine
DX: N39.0 Urinary tract infection, site not specified (principal); B95.2 Enterococcus as the cause of diseases classified elsewhere
CPT/HCPCS: 81001; 87086; 87088; 87186

== ENCOUNTER 2022-06-08 22:00 | Inpatient (IN) | payer MEDICARE, OTHER, SELFPAY ==
[2022-06-08 22:00] VITALS: BP 101/40; PULSE 108; RESP 18; TEMP 37.1; O2SAT 96; BMI 21.5
[2022-06-08 22:25] VITALS: BP 112/59; PULSE 110; O2SAT 97
--- NOTE | 2022-06-08 22:27 | PC.NURSE ---
Pt advises he just wants to be left alone so he can sleep.
[2022-06-08 23:00] VITALS: BP 93/48; PULSE 105; O2SAT 100
[2022-06-09] VITALS (32 sets, daily range): BP systolic 87–127; BP diastolic 38–78; PULSE 70–110; RESP 16–20; TEMP 36.4–36.8; O2SAT 90–100; BMI 23.8
[2022-06-09 00:52] LABS: Basophils # 0.1 K/mm3 (0-0.2); Basophils % 0.6 % (0.1-2.0); Eosinophils % 0.1 % (0.1-12.0); Hematocrit 26.4 % (42.0-52.0); Hemoglobin 8.6 g/dL (14.1-18.0); Lymphocytes # 0.8 K/mm3 (0.7-4.5); Lymphocytes % 6.3 % (10-50); Mean Corpuscular HGB Conc 32.5 g/dL (31.8-35.4); Mean Corpuscular Volume 95.4 fl (80-94); Mean Platelet Volume 8.7 fl (7.4-10.4); Monocytes # 0.7 K/mm3 (0.1-1.0); Monocytes % 5.1 % (1.7-9.3); Neutrophils # 11.5 K/mm3 (1.8-7.8); Neutrophils % 87.8 % (37.0-80.0); Platelet Count 346 K/mm3 (142-424); Red Blood Count 2.76 M/mm3 (4.60-6.20); Red Cell Distribution Width 16.5 % (11.5-17.5); White Blood Count 13.1 K/mm3 (4.8-10.8)
[2022-06-09 00:58] LABS: MANUAL DIFFERENTIAL MANUAL DIFFERENTIAL (MANUAL DIFF)
[2022-06-09 01:03] LABS: Alanine Aminotransferase 31 U/L (12-78); Albumin Level 3.1 g/dl (3.5-5.0); Albumin/Globulin Ratio 0.9 (1.1-1.8); Alkaline Phosphatase 82 U/L (38-126); Anion Gap 14.3 mEq/L (5-15); Aspartate Amino Transferase 40 U/L (17-59); Bilirubin,Total 0.7 mg/dl (0.2-1.3); Blood Urea Nitrogen 73 mg/dl (9-20); Calcium 8.1 mg/dl (8.4-10.2); Carbon Dioxide 26 mmol/L (22.0-30.0); Chloride 100 mmol/L (98-107); Creatinine Clearance Estimated 28 mL/min (50-200); Estimated Glomerular Filt Rate 32 ml/min (>60); GFR (African American) 39 ML/MIN (>60); Globulin 3.5 g/dL (1.3-3.2); Glucose 276 mg/dl (74-100); Potassium 5.3 mmoL/L (3.5-5.1); Sodium 135 mmol/L (136-145); Total Protein,Serum 6.6 g/dl (6.3-8.2)
[2022-06-09 01:21] LABS: Troponin I 0.85 ng/ml (0.00-0.034)
--- NOTE | 2022-06-09 01:24 | PC.NURSE ---
crit trop 0.85
--- NOTE | 2022-06-09 01:25 | ECG_ITS ---
APPROVED REPORT Exam: Resting ECG HR:101 bpm ECG Measurements Heart Rate 101 AXES [place] 128 P -41 QRSd 125 QRS 181 QT 388 T 44 QTc 446 Conclusion SINUS TACHYCARDIA INDETERMINATE AXIS RIGHT BUNDLE BRANCH BLOCK [120+ ms QRS DURATION, UPRIGHT V1, 40+ ms S IN I/aVL/V4/V5/V6] ABNORMAL ECG UNCONFIRMED REPORT Electronically signed by : Riley Rogers MD 06/09/2022 16:04:27
[2022-06-09 02:24] LABS: Lymphocytes % 5 % (10-50); Monocytes % 4 % (2-9); Neutrophils % 90 % (42-76); Platelet Estimate Normal; RBC Morphology Normal; Total Cells Counted 100
--- NOTE | 2022-06-09 03:01 | PC.NURSE ---
Pt given glass of ice water and a blanket. Pt repositioned at this time as well.
[2022-06-09 03:24] LABS: Troponin I 1.07 ng/ml (0.00-0.034)
--- NOTE | 2022-06-09 03:26 | PC.NURSE ---
2nd trop 1.07 notified no new orders at this time
--- NOTE | 2022-06-09 03:28 | HMH.EDRECH ---
Discharge Plan Disposition Patient Disposition: Home, Self-Care Prescriptions Prescriptions: New clindamycin HCl 300 mg capsule 300 mg PO TID Qty: 30 0RF No Action tamsulosin 0.4 mg capsule 0.4 mg PO DAILY Qty: 90 3RF loperamide 2 mg capsule 2 mg PO Q6H PRN aspirin 81 mg tablet,delayed release (DR/EC) 81 mg PO DAILY ondansetron 4 mg tablet,disintegrating 4 mg PO TID PRN diclofenac sodium 1 % gel 2 gm TP QID Qty: 100 0RF Rx Instructions: apply to single elbow, wrist or hand; for hand includes palm/fingers/back of hand fluoxetine [Prozac] 20 mg capsule 20 mg PO DAILY Qty: 30 2RF glipizide 10 MG tablet extended release 24hr 10 mg PO DAILY enalapril-hydrochlorothiazide 1 EACH tablet 1 each PO BID amlodipine 10 MG tablet 10 mg PO DAILY levothyroxine 50 MCG tablet 50 mcg PO DAILY hydrocodone-acetaminophen 1 EACH tablet 1 tab PO QID furosemide 20 MG tablet 20 mg PO DAILY bisoprolol fumarate 5 MG tablet 5 mg PO DAILY 30 Days Qty: 30 0RF Referrals Follow up/Referrals: Андрей Mejia MD [Primary Care Provider] - See instructions Clinical Impressions Clinical Impression: PVD (peripheral vascular disease), 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 by RN): per ems they showed up to the facility and the pt stated no complaints and wanted to be left to sleep. the nurse stated to the pt that she really though he should come and he than reportedly said he would go if she would just leave him alone and let him sleep.pt has no complaints at this time History of Present Illness HPI narrative: sent by f for rt foot psin - has pvd and has infected rt foot MD complaint: wound re-check Initial visit (ago): day(s) Initial visit for: cellulitis Returns today for: cellulitis follow-up Symptoms since prior visit: worsening pain Related Data Home Medications Medication Instructions Recorded Confirmed amlodipine 10 mg tablet 10 mg PO DAILY Hypertension 03/22/22 05/29/22 enalapril 10 1 each PO BID Hypertension 03/22/22 05/29/22 mg-hydrochlorothiazide 25 mg tablet glipizide 10 mg tablet, extended 10 mg PO DAILY Diabetes 03/22/22 05/29/22 release 24 hr hydrocodone 7.5 mg-acetaminophen 1 tab PO QID Pain 03/22/22 05/29/22 325 mg tablet levothyroxine 50 mcg tablet 50 mcg PO DAILY THYROID 03/22/22 05/29/22 furosemide 20 mg tablet 20 mg PO DAILY Fluid 04/19/22 05/29/22 aspirin 81 mg tablet,delayed 81 mg PO DAILY 05/15/22 05/29/22 release loperamide 2 mg capsule 2 mg PO Q6H PRN 05/15/22 05/29/22 ondansetron 4 mg disintegrating 4 mg PO TID PRN 05/15/22 05/29/22 tablet Previous Rx's Medication Instructions Recorded bisoprolol fumarate 5 mg tablet 5 mg PO DAILY 30 days #30 tabs 04/24/22 diclofenac sodium 1 % topical gel 2 gm topical QID #100 grams 04/26/22 fluoxetine 20 mg capsule (Prozac) 20 mg PO DAILY #30 caps 04/26/22 tamsulosin 0.4 mg capsule 0.4 mg PO DAILY #90 caps 05/15/22 clindamycin HCl 300 mg capsule 300 mg PO TID #30 caps 06/09/22 Allergies Allergy/AdvReac Type Severity Reaction Status Date / Time No Known Allergies Allergy Verified 05/29/22 10:47 [facility] Surgical History History of nephrectomy Social History Smoking Status: Fo
--- NOTE | 2022-06-09 05:34 | PC.NURSE ---
Called [facility] for transport back to facility they said they do not have transport on the weekends and will call us back and let us know if someone is able to come get him.
--- NOTE | 2022-06-09 05:40 | PC.NURSE ---
Pt's right foot re-wrapped with Kerlex and non-adherent drsg. Pt tolerated well. Pt given meds per MAR and repositioned in bed.
--- NOTE | 2022-06-09 05:48 | PC.NURSE ---
longterm staff called to report that they had no way to get their pt back to the facility. Then stated that the pt was being followed by [facility], and we needed to notify them of the situation i then asked for the case number, worker and or number to call and report to. I was then given the name Soco Jacome. I repeated the information and request to the nurse. what they were requesting was that because THEY could not provide transport I was to report the pts failure to want to be admitted to [facility] because [facility] is following him, but they have no case number or contact information for the worker following him. I requested she call her boss to gather the rest of that information before we could even consider her request
--- NOTE | 2022-06-09 05:53 | PC.NURSE ---
Addendum entered by Sada De León 06/09/22 06:04: Angie from [facility] called back stating due to it being a weekend they do not run the van per pt transport and did not have a staff member to transport the pt they will not come get the pt. Called EMS explained to them the situation and the pt does not meet the requirements for transport back to the facility so they declined transfer at this time. Original Note: Francesca from [facility] called back stating due to it being a weekend they do not run the van per pt transport and did not have a staff member to transport the pt they will not come get the pt. Called EMS explained to them the situation and the pt does not meet the requirements for transport back to the facility so they declined transfer at this time.
--- NOTE | 2022-06-09 06:04 | INFXCTL.NOTE ---
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 Angie also asked if we were able to contact the pt POA and I explained we were not aware of his POA and that they were informed when EMS picked up the pt that due to the pt being mobile they will not transport the pt back to the facility due to not meeting the requirements. I told Angie that they were responible for calling the pt POA and providing transport back to the facility due to him being a resident at their facility and she then hung up on me.
--- NOTE | 2022-06-09 07:12 | PC.NURSE ---
shift report received by jerardo
--- NOTE | 2022-06-09 07:19 | PC.NURSE ---
spoke with Luda Tijerina the head of nursing and she called to notify me that she was unable to find transport for the pt. I again stated that he wants to leave the facility and they need to come get the pt. [facility]. she then asked well what if we cant get there until saturday and i explained that she needed to find him transport because he is their pt and they need to figure that out because he will no longer be a pt here. she advised she would have her corporate office call back
--- NOTE | 2022-06-09 07:20 | PC.NURSE ---
attempted to call [facility] for pt. automotive line states they open at 8. will call back then.
--- NOTE | 2022-06-09 07:28 | PC.NURSE ---
pt refused all care labs canceled and he is awaiting a ride
--- NOTE | 2022-06-09 07:47 | PC.NURSE ---
manager housekeeping made aware of transportation situation
--- NOTE | 2022-06-09 08:30 | PC.NURSE ---
Herson from [facility] called stating that [facility] is refusing to accept pt back to [facility] they can't meet his clinical needs .
--- NOTE | 2022-06-09 09:38 | PC.NURSE ---
warehouser collaborating with care management for dispo
--- NOTE | 2022-06-09 10:23 | PC.NURSE ---
Participated in a conference call with Nakia Paz in Care Management and Herson from [facility] [employer] office. [facility] is unable to accept patient back at the facility at this time r/t pt refusing admission to the hospital. Per Herson pt also refuses wound care at long term and they are concerned he is at risk for sepsis if his wounds are not treated. Patient also had elevated troponins while in ER and the Facility has concerns that pt requires monitoring before returning to them. After speaking with Herson and Nakia, pt was informed that in order to be able to possibly return to [facility] pt needed to be monitored and [facility] Managment wound re-evaluate on saturday. at this time patient is agreeable to admission to [facility].
--- NOTE | 2022-06-09 10:26 | EXP.PHA.CONS ---
Pharmacy Consult Date: 06/09/22 Time: 10:26 Referring provider: DR. ADLER Reason for Consult:: VANCOMYCIN DOSING Allergies Allergy/AdvReac Type Severity Reaction Status Date / Time No Known Allergies Allergy Verified 05/29/22 10:47 Home Medications Medication Instructions Recorded Confirmed Type amlodipine 10 mg tablet 10 mg PO DAILY Hypertension 03/22/22 05/29/22 History enalapril 10 1 each PO BID Hypertension 03/22/22 05/29/22 History mg-hydrochlorothiazide 25 mg tablet glipizide 10 mg tablet, extended 10 mg PO DAILY Diabetes 03/22/22 05/29/22 History release 24 hr hydrocodone 7.5 mg-acetaminophen 1 tab PO QID Pain 03/22/22 05/29/22 History 325 mg tablet levothyroxine 50 mcg tablet 50 mcg PO DAILY THYROID 03/22/22 05/29/22 History furosemide 20 mg tablet 20 mg PO DAILY Fluid 04/19/22 05/29/22 History bisoprolol fumarate 5 mg tablet 5 mg PO DAILY 30 days #30 tabs 04/24/22 05/29/22 Rx diclofenac sodium 1 % topical gel 2 gm topical QID #100 grams 04/26/22 05/29/22 Rx fluoxetine 20 mg capsule (Prozac) 20 mg PO DAILY #30 caps 04/26/22 05/29/22 Rx aspirin 81 mg tablet,delayed 81 mg PO DAILY 05/15/22 05/29/22 History release loperamide 2 mg capsule 2 mg PO Q6H PRN 05/15/22 05/29/22 History ondansetron 4 mg disintegrating 4 mg PO TID PRN 05/15/22 05/29/22 History tablet tamsulosin 0.4 mg capsule 0.4 mg PO DAILY #90 caps 05/15/22 05/29/22 Rx clindamycin HCl 300 mg capsule 300 mg PO TID #30 caps 06/09/22 Rx New Prescriptions to Start Prescriptions: clindamycin HCl Андрей Adler Height: 1.83 m Weight: 72.121 kg Laboratory Results:: Laboratory Results - last 24 hr 06/09/22 00:00: WBC 13.1 H, RBC 2.76 L, Hgb 8.6 L, Hct 26.4 L, MCV 95.4 H, MCH 31.0, MCHC 32.5, RDW 16.5, Plt Count 346, MPV 8.7, Neut % (Auto) 87.8 H, Lymph % (Auto) 6.3 L, [place] % (Auto) 5.1, Eos % (Auto) 0.1, Baso % (Auto) 0.6, Neut # (Auto) 11.5 H, Lymph # (Auto) 0.8, [place] # (Auto) 0.7, Eos # (Auto) 0.0, Baso # (Auto) 0.1, Total Counted 100, Neutrophils % (Manual) 90 H, Lymphocytes % (Manual) 5 L, Monocytes % (Manual) 4, Basophils % (Manual) 1.0, Platelet Estimate Normal, RBC Morphology Normal 06/09/22 00:00: Sodium 135 L, Potassium 5.3 H, Chloride 100, Carbon Dioxide 26, Anion Gap 14.3, BUN 73 H, Creatinine 2.00 H, Estimated Creat Clear 28, Estimated GFR 32 L, Est GFR ( Amer) 39 L, Glucose 276 H, Calcium 8.1 L, Total Bilirubin 0.7, AST 40, ALT 31, Alkaline Phosphatase 82, Troponin I 0.85 H, Total Protein 6.6, Albumin 3.1 L, Globulin 3.5 H, Albumin/Globulin Ratio 0.9 L 06/09/22 02:56: Troponin I 1.07 H Assessment and Plan Assessment and plan all Dx Assessment and Plan for all problems:: Pharmacokinetic dosing service Objective: Patient: Floor: Age: 82 yo Serum creatinine: 2.00 mg/dL Height: 72.0 Inches Weight (kg): 72.1 Assessment: IBW (kg): 77.60 Dosing wt(kg): 72.1 Estimated Creatinine clearance (ml/min): 28.0 CRCL method: Cockcroft and Gault using ibw(default). Drug selected: Vancomycin Loading dose (mg): Vd (liters): 54.1 (factor used: 0.75 L/kg) Jj (hr-1): 0.028 Half life (hrs): 24.76 CLvanco=?? 1.515 L/hr Recommended dose: 1250 mg Interval: 36 hrs Infusion time (hrs): 2.0 Predicted peak (mcg/mL): 35.4 Predicted trough (mcg/mL): 13.66 Total body weight is being used for vancomycin dosing. Recommendations: Give Vancomycin 1250 mg q 36 hrs with an expected Cpeak of 35.4 mcg/ml and an expected Ctrough of 13.66 mcg/ml AUC 0-24 /JERRELL Data: JERRELL 0.5 mcg/mL:?? AUC/JERRELL:? 1100.1 JERRELL 1.0 mcg/mL:?? AUC/JERRELL:? 550.1 --------- JERRELL 1.5 mcg/mL:?? AUC/JERRELL:? 366.7 JERRELL 2.0 mcg/mL:?? AUC/JERRELL:? 275.0 Thank you for the consult, will continue to follow. -VLAD HEATHD
[2022-06-09 10:33] LABS: Coronavirus 19, PCR Not Detected (NotDetected); Influenza A, PCR Not Detected (NotDetected); Influenza B, PCR Not Detected (NotDetected)
--- NOTE | 2022-06-09 10:57 | PC.NURSE ---
pt bed changed and given warm blanket and repositioned
--- NOTE | 2022-06-09 11:18 | PC.NURSE ---
report called to floor
--- NOTE | 2022-06-09 12:02 | PC.NURSE ---
patient arrived to floor by stretcher from ED
--- NOTE | 2022-06-09 12:46 | P.CONPHA_ITS ---
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) (Acute) KYM (acute kidney injury) (Acute) Cellulitis and abscess of foot (Acute) Anemia (Acute) SIRS (systemic inflammatory response syndrome) (Acute) Non-ST elevated myocardial infarction (non-STEMI) (Acute) Acute on chronic renal failure (Acute) VTE Risk Labs: VTE Related Lab Results Hgb 8.6 g/dL (14.1-18.0) L 06/09/22 00:00 Hct 26.4 % (42.0-52.0) L 06/09/22 00:00 Plt Count 346 K/mm3 (142-424) 06/09/22 00:00 BUN 73 mg/dl (9-20) H 06/09/22 00:00 Creatinine 2.00 mg/dl (0.66-1.25) H 06/09/22 00:00 Estimated Creat Clear 28 mL/min (50-200) 06/09/22 00:00 VTE Score: 2 Prophylaxis VTE Prophylaxis Ordered?: Yes Types of VTE Prophylaxis: TEDS Knee High Location of Applied Device: Left Leg
--- NOTE | 2022-06-09 12:47 | P.CONPHA_ITS ---
Pharmacy Intervention Comments: MEDICATION RECONCILIATION COMPLETED ON PATIENT USING MAR FROM [facility]. -LANCE CUMMINS, VLADD
--- NOTE | 2022-06-09 12:47 | HMH.PHAINT1 ---
Pharmacy Intervention Comments: MEDICATION RECONCILIATION COMPLETED ON PATIENT USING MAR FROM LONG TERM. -LANCE CUMMINS, VLADD
--- NOTE | 2022-06-09 14:02 | PC.WOUNDNOTE ---
stage 2 noted to the coccyx unstageable ulcer noted to the rle unstageable ulcer noted to the outer right heel scattered abrasions noted to rle unstageable ulcer noted to the medial right heel
[2022-06-09 14:55] LABS: Microscopic, Urine URINE MICROSCOPIC (MICROSCOPIC)
[2022-06-09 15:06] LABS: Appearance,Urine SL CLOUDY (Clear); Bilirubin,Urine Negative (Negative); Blood, Urine 3+ (Negative); Color,Urine YELLOW (Yellow); Glucose,Urine (UA) Negative (Negative); Ketones,Urine Negative (Negative); Leukocyte Esterase,Urine 3+ (Negative); Nitrate,Urine Negative (Negative); Protein,Urine 1+ (Negative); Specific Gravity, Urine 1.025 (1.005-1.030); Urobilinogen,Urine 0.2 EU/dl (0.2)
[2022-06-09 15:16] LABS: Bacteria,Urine 2+ /lpf; RBC,Urine TNTC #/hpf (0-3); WBC,Urine TNTC #/hpf (0-3)
--- NOTE | 2022-06-09 16:52 | PC.NURSE ---
PT REQUESTED FOR HIS DAUGHTERS TO BE NOTIFIED ABOUT BEING IN THE HOSPITAL . NOTIFIED PEGGY DAILY AND SHE STATED SHE WAS IN [place]. NOTIFIED OTHER DAUGHTER MARC VU AND SHE WAS VERY APPRECIATIVE THAT WE UPDATED HER ON HER FATHERS STATUS. DAUGHTER ASKED IF PT WAS UNABLE TO GO BACK TO [facility] WOULD HE BE OKAY GOING HOME. PER NURSING STAFF PT WOULD NOT BE SAFE BEING AT HOME ALONE. DAUGHTER STATED SHE DID NOT KNOW WHAT TO DO WITH HIM B/C PT WAS AWFUL TO HER AND HER SISTER. CARE MANAGEMENT IS AWARE AND WILL ADDRESS PLACEMENT AT TIME OF DISCHARGE.
--- NOTE | 2022-06-09 18:40 | PC.NURSE ---
Patient VSS, weak and unsteady on feet needs assist x 2 - bed alarm activated, needs assist with meals at this time, uses urinal independently and able to turn himself but likes to lay on left side. Has stage 2 on coccyx with dressing c/d/i & multiple scabs on BLE, on right heel unstageable ulcers no drainage noted pressure dressing applied. Patient did request next of kin (daughters) to be notified in regards to being in hospital but stated was not requesting them to come to hospital. No acute distress noted, call light within reach, bed at lowest level for safety.
--- NOTE | 2022-06-09 19:06 | PC.NURSE ---
Patient VSS, up to chair most of the day (chair alarm activated) watching TV, had a shower, ambulates with standby assist to bathroom, B/L Lungs diminished no wheezing noted. No sputum collected, respiratory notified for assist. No s/s of acute distress noted, call light within reach, bed at lowest level for safety.
[2022-06-10] VITALS (8 sets, daily range): BP systolic 102–128; BP diastolic 59–71; PULSE 63–121; RESP 16–22; TEMP 36.5–36.8; O2SAT 90–94; BMI 24.3
--- NOTE | 2022-06-10 05:41 | PC.NURSE ---
pt has rested t/o the shift. pt needs assistance X2 to and from the bathroom. dressings to wounds cdi. no complaints of pain during this shift. CB in reach, bed in lowest position, bed alarm is on and functioning.
[2022-06-10 07:54] LABS: Basophils # 0.1 K/mm3 (0-0.2); Basophils % 0.3 % (0.1-2.0); Hemoglobin 8.9 g/dL (14.1-18.0); Lymphocytes # 0.9 K/mm3 (0.7-4.5); Lymphocytes % 4.8 % (10-50); Mean Corpuscular HGB Conc 31.7 g/dL (31.8-35.4); Mean Corpuscular Hemoglobin 30.4 pg (27.0-31.2); Mean Corpuscular Volume 95.8 fl (80-94); Mean Platelet Volume 8.9 fl (7.4-10.4); Monocytes # 0.8 K/mm3 (0.1-1.0); Neutrophils # 17.1 K/mm3 (1.8-7.8); Neutrophils % 90.8 % (37.0-80.0); Platelet Count 423 K/mm3 (142-424); Red Blood Count 2.93 M/mm3 (4.60-6.20); Red Cell Distribution Width 16.7 % (11.5-17.5); White Blood Count 18.8 K/mm3 (4.8-10.8)
[2022-06-10 07:56] LABS: Chloride 103 mmol/L (98-107); Potassium 4.9 mmoL/L (3.5-5.1); Sodium 139 mmol/L (136-145)
[2022-06-10 07:57] LABS: MANUAL DIFFERENTIAL MANUAL DIFFERENTIAL (MANUAL DIFF)
[2022-06-10 07:59] LABS: Alanine Aminotransferase 323 U/L (12-78); Albumin Level 3.3 g/dl (3.5-5.0); Albumin/Globulin Ratio 0.9 (1.1-1.8); Alkaline Phosphatase 107 U/L (38-126); Anion Gap 21.9 mEq/L (5-15); Aspartate Amino Transferase 460 U/L (17-59); Bilirubin,Total 1.5 mg/dl (0.2-1.3); Blood Urea Nitrogen 78 mg/dl (9-20); Calcium 8.1 mg/dl (8.4-10.2); Carbon Dioxide 19 mmol/L (22.0-30.0); Creatinine Clearance Estimated 28 mL/min (50-200); Estimated Glomerular Filt Rate 27 ml/min (>60); GFR (African American) 33 ML/MIN (>60); Globulin 3.5 g/dL (1.3-3.2); Glucose 240 mg/dl (74-100); Total Protein,Serum 6.8 g/dl (6.3-8.2)
--- NOTE | 2022-06-10 09:04 | EXP.ACUTE.PN ---
Subjective *Date: 06/10/22 *Time: 09:04 Interval history: pt doing better - Medical Exam Vital signs and Labs for Last 24 Hours: Temp Pulse Resp BP Pulse Ox 97.7 F 104 H 16 107/62 L 92 L 06/10/22 07:53 06/10/22 07:53 06/10/22 07:53 06/10/22 07:53 06/10/22 07:53 Laboratory Results - last 24 hr 06/09/22 04:58: Urine Color Yellow, Urine Appearance Sl cloudy, Urine pH 6.0, Ur Specific [place] 1.025, Urine Protein 1+, Urine Glucose (UA) Negative, Urine Ketones Negative, Urine Blood 3+, Urine Nitrate Negative, Urine Bilirubin Negative, Urine Urobilinogen 0.2, Ur Leukocyte Esterase 3+ A, Urine RBC Tntc, Urine WBC Tntc, Ur Squamous Epith Cells 3-5, Urine Bacteria 2+ 06/09/22 10:22: SARS-CoV-2 (PCR) Not detected, Influenza A Untype (PCR) Not detected, Influenza Type B (PCR) Not detected 06/10/22 06:59: Sodium 139, Potassium 4.9, Chloride 103, Carbon Dioxide 19 L, Anion Gap 21.9 H, BUN 78 H, Creatinine 2.30 H, Estimated Creat Clear 28, Estimated GFR 27 L, Est GFR ( Amer) 33 L, Glucose 240 H, Calcium 8.1 L, Total Bilirubin 1.5 H, AST 460 H* D, ALT 323 H*, Alkaline Phosphatase 107, Total Protein 6.8, Albumin 3.3 L, Globulin 3.5 H, Albumin/Globulin Ratio 0.9 L 06/10/22 06:59: WBC 18.8 H D, RBC 2.93 L, Hgb 8.9 L, Hct 28.0 L, MCV 95.8 H, MCH 30.4, MCHC 31.7 L, RDW 16.7, Plt Count 423, MPV 8.9, Neut % (Auto) 90.8 H, Lymph % (Auto) 4.8 L, [place] % (Auto) 4.0, Eos % (Auto) 0.0 L, Baso % (Auto) 0.3, Neut # (Auto) 17.1 H, Lymph # (Auto) 0.9, [place] # (Auto) 0.8, Eos # (Auto) 0.0, Baso # (Auto) 0.1 I & O for Labs for Last 24 Hours: Intake & Output 06/07/22 06/08/22 06/09/22 06/10/22 11:59 11:59 11:59 11:59 Intake Total 1857 / 1857 Output Total 375 / 375 Balance 1482 / 1482 Weight 159 lb 179 lb 8 oz
[2022-06-10 09:07] LABS: Lymphocytes % 2 % (10-50); Monocytes % 5 % (2-9); Neutrophils % 93 % (42-76); Platelet Estimate Slight Increase; RBC Morphology Normal; Total Cells Counted 100
[2022-06-10 11:30] LABS: POC Glucose,Bedside 321 (70-110)
[2022-06-10 16:14] LABS: POC Glucose,Bedside 182 (70-110)
--- NOTE | 2022-06-10 16:33 | PC.NURSE ---
Patient VSS, Fluid bolus of 500mL tolerated well no crackles noted, Had BM x 1, has had multiple visitors today, increased appetite - small amounts, starting FSBS & sliding scale today. O2 dropped <86 while sleeping administered 2L NC, has shown no s/s of acute distress, call light within reach, bed at lowest level with alarm activated for safety.
[2022-06-10 20:53] LABS: POC Glucose,Bedside 159 (70-110)
--- NOTE | 2022-06-10 22:39 | PC.NURSE ---
pt found to be incontinent of urine and stool at this time. brief and chux changed at this time.
--- NOTE | 2022-06-10 22:46 | PC.WOUNDNOTE ---
unstageable ulcer and pressure injury noted to RLE and right heel unstageable pressure injury noted to right heel. small scabs noted to BLE stage 2 presure injury noted on coccyx.
--- NOTE | 2022-06-10 23:06 | PC.NURSE ---
dressing changes on coccyx and RLE completed. heels floated off mattress, pt pulled up and turned in bed with assistance. pt states he is comfortable and ready to go to sleep.
[2022-06-11] VITALS (51 sets, daily range): BP systolic 70–175; BP diastolic 47–112; PULSE 68–110; RESP 16–20; TEMP 36.3–37; O2SAT 89–100; BMI 25.0
--- NOTE | 2022-06-11 | IR_ITS ---
APPROVED REPORT Patient Location: Inpatient PROCEDURES Left heart catheterization Left ventriculogram Selective coronary angiogram Selective engagement left internal mammary artery Bilateral selective renal angiography Bare-metal stent deployment to the right renal INDICATION Acute non-ST elevation myocardial infarction, Coronary artery disease, History of coronary bypass surgery, Chronic renal failure, Renal artery stenosis Informed consent was obtained prior to the procedure. COMPLICATIONS None Estimated Blood Loss: Less than 10 mls TECHNIQUE 1% lidocaine used anesthetize the left groin the left femoral was accessed via the center technique and a 5 Macedonian sheath was placed in the femoral artery. A JR4 JR4 catheter used to perform left heart catheterization left ventriculogram as well as selective coronary angiography of the WOODARD graft supplying the LAD diagonal artery circumflex artery and right coronary artery. At the end of the diagnostic cardiac catheterization JR4 cath was used to perform right renal artery selective angiography. After severe renal artery stenosis was identified the 5 Macedonian sheath was exchanged for a 7 Macedonian sheath and a renal double curve catheter was used to intubate the right renal artery. Therapeutic heparin was administered giving a therapeutic ACT a Choice PT extra-support wire was placed distally and a 6 mm x 18 mm Herculink stent was deployed at 18 mirella reducing the severe stenosis to 0%. The same guide catheter was used to perform left renal artery angiography. At the end the procedure the apparatus was removed the patient was transferred to the postop putting in stable condition for sheath removal ANGIOGRAPHIC RESULTS The left main artery Is distally subtotally occluded The left anterior descending artery Occluded The circumflex artery Occluded The right coronary artery Is occluded proximally The VASQUES ventriculogram reveals Reduced ejection fraction estimated 40% The left ventricular end-diastolic pressure 10 mmHg WOODARD is a large graft and anastomoses onto a first diagonal artery and then skips to the mid LAD. A Y graft originates off the midportion of the WOODARD and then makes anastomosis on 2 a terminal obtuse marginal artery off the circumflex artery and then skips over to the posterior descending artery Right renal artery singular and has an ostial eccentric 80% calcified stenosis Left renal artery has multiple arterial supplies the main portion supplying the left kidney is widely patent while 2 smaller branches appear to be severely stenosed proximally but are less than 2 mm in diameter IMPRESSION Widely patent coronary arteries as described above with excellent surgical revascularization Reduced ejection fraction Normal left ventricular end-diastolic pressure Severe right renal artery stenosis Successful stent to the right renal artery severe disease reduced to 0% with 1 bare-metal stent Mostly patent left renal artery supplying the majority of the parenchyma with severe stenoses in my [place] branches supplying the left kidney PLAN 1. Aspirin only 81 mg daily 2. Continue medical management 3. Supportive care for coronary artery disease and congestive heart failure Electronically signed by : Darion Deleon MD 06/11/2022 12:10:33
--- NOTE | 2022-06-11 04:39 | PC.NURSE ---
pt has had no complaints of CP or SOA this shift. he is a&oX4, with agitation at times. NSR with BBB on tele. HR has been 63-110 this shift. 2L NC used while sleeping. O2 sats remain around 94%. lung sounds diminished. Pt was incontinent of urine and stool this shift. see skin issues on wound note. barrier dressings used on wounds. all dressings C/D/I. pt turned at 2 hour rounds if he had not already turned himself, and heels elevated off mattress with pillow most of the night. NS infusing at 100 ml/hr. bed alarm on and functioning for safety, and call light within reach. no needs at this time.
[2022-06-11 05:57] LABS: POC Glucose,Bedside 137 (70-110)
--- NOTE | 2022-06-11 06:35 | CA_ITS ---
APPROVED REPORT EXAM: Comprehensive 2D, Doppler, and color-flow Echocardiogram Rn Oncology Clinical: Rachel Darnell CRT Ht: 6 ft 0 in Wt: 184lbs BSA: 2.06 BP: 107/62 mmHg Indications: Non STEMI, increased trop, DNR,CRF 2D Dimensions LVOT 1.99 cm (M/F) 1.5-2.5 LA Volume 29.10 mL LA Volume Index 14.10 mL/m2 (M/F) 16-34 M-Mode Dimensions RVDd 3.72 cm (0.9-2.6) LA Diam 3.06 cm (1.9-4.0) LVDd 5.04 cm (3.5-5.7) Ao Diam 4.65 cm (2.0-3.7) LVDs 3.15 cm (3.5-5.7) IVSd 1.03 cm (0.6-1.1) PWd 0.82 cm (0.6-1.1) EF (Teich) 67.30% FS 37.50% EDV (Teich) 120.50 mL ESV (Teich) 39.40 mL Aortic Valve AO Peak GR. 8.80 mmHg Pulmonary Valve PV Peak Velocity 112.00 (50-150 cm/s) Tricuspid Valve TR P. Velocity 312.00 cm/s RAP Estimate 10.00 mmHg RVSP 49.00 mmHg Left Ventricle Technically difficult and challenging study, endocardial cells are poorly visualized, left atrium is mildly enlarged, left ventricle is normal size, there is marked abnormal septal motion, estimated ejection fraction 50%. There is no regional wall motion abnormality, there is flattening of the interventricular septum during systole and diastole consistent with pressure and volume overload in right ventricle. Doppler evidence of low cardiac output state is also seen. Right Ventricle Right atrium and right ventricle moderately enlarged with moderate reduction right ventricular contractility. Aortic Valve Aortic valve is thickened and calcified there is no aortic stenosis or aortic insufficiency. Mitral Valve Mitral valve has mitral annular calcification which extends to both anterior posterior mitral leaflet, there is moderate mitral regurgitation. Tricuspid Valve Tricuspid valve leaflets are minimally thickened, there is moderate tricuspid regurgitation, calculated right ventricular systolic pressure is approximately 50 mmHg. Pulmonic Valve Pulmonic valve is poorly visualized. Great Vessels Aortic root is normal size. Inferior vena cava is dilated without significant inspiratory collapse. Pericardium No significant pericardial effusion noted. Conclusion 1. Technically difficult and challenging study. Biatrial enlargement, normal left ventricular size, mild concentric left ventricular hypertrophy, estimated ejection fraction 50% with no regional wall motion abnormality, there is flattening of the interventricular septum during systole and diastole consistent with pressure and volume overload in right ventricle. Doppler evidence of low cardiac output state seen. 2. Moderately enlarged right ventricle with moderately reduced contractility. 3. Moderate mitral and tricuspid regurgitation, calculated right ventricular systolic pressure is 50 mmHg. 4. No significant pericardial effusion. 5. Inferior vena cava is dilated without significant inspiratory collapse. Electronically signed by : Jean-Pierre Nails MD 06/12/2022 06:45:03
[2022-06-11 07:34] LABS: Basophils # 0.1 K/mm3 (0-0.2); Basophils % 0.3 % (0.1-2.0); Eosinophils % 0.3 % (0.1-12.0); Hematocrit 27.3 % (42.0-52.0); Hemoglobin 8.5 g/dL (14.1-18.0); Lymphocytes # 0.7 K/mm3 (0.7-4.5); Lymphocytes % 4.3 % (10-50); Mean Corpuscular HGB Conc 31.1 g/dL (31.8-35.4); Mean Corpuscular Hemoglobin 29.7 pg (27.0-31.2); Mean Corpuscular Volume 95.6 fl (80-94); Mean Platelet Volume 9.3 fl (7.4-10.4); Monocytes # 0.5 K/mm3 (0.1-1.0); Neutrophils # 13.9 K/mm3 (1.8-7.8); Neutrophils % 92.1 % (37.0-80.0); Platelet Count 332 K/mm3 (142-424); Red Blood Count 2.85 M/mm3 (4.60-6.20); Red Cell Distribution Width 16.8 % (11.5-17.5); White Blood Count 15.1 K/mm3 (4.8-10.8)
[2022-06-11 07:37] LABS: MANUAL DIFFERENTIAL MANUAL DIFFERENTIAL (MANUAL DIFF)
[2022-06-11 07:38] LABS: Chloride 107 mmol/L (98-107); Sodium 138 mmol/L (136-145)
[2022-06-11 07:39] LABS: Potassium 4.6 mmoL/L (3.5-5.1)
[2022-06-11 07:41] LABS: Blood Urea Nitrogen 76 mg/dl (9-20); Creatinine Clearance Estimated 33 mL/min (50-200); Estimated Glomerular Filt Rate 32 ml/min (>60); GFR (African American) 39 ML/MIN (>60)
[2022-06-11 07:42] LABS: Anion Gap 16.6 mEq/L (5-15); Calcium 7.8 mg/dl (8.4-10.2); Carbon Dioxide 19 mmol/L (22.0-30.0); Glucose 145 mg/dl (74-100)
[2022-06-11 08:02] LABS: Troponin I 1.96 ng/ml (0.00-0.034)
[2022-06-11 08:10] LABS: Lymphocytes % 5 % (10-50); Monocytes % 1 % (2-9); Neutrophils % 94 % (42-76); Total Cells Counted 100
[2022-06-11 08:11] LABS: Anisocytosis 1+; Hypochromasia 1+; Macrocytosis 1+; Ovalocytes 1+; Platelet Estimate Normal
--- NOTE | 2022-06-11 08:22 | SW/DCPLANNER ---
Addendum entered by Awilda Engle 06/12/22 12:43: Alma gayle/ [facility] has stated that she is unable to accept this patient back to their facility. Alma also stated that an APS referral was made by [facility] Lee on Saturday06/08/22 prior to hospital admission. Lorenza gayle/ ALYSSA is working w/ family regarding Guardianship. I will continue to follow up with APS and MD. Addendum entered by Awilda Engle 06/11/22 15:06: Nakia gayle/ [facility] did come to evaluate this patient: patient is not alert and oriented at this time from procedure. Nakia will follow up with family this evening and patient in AM. I am waiting to hear back from Alma gayle/ [facility] Lee regarding accepting patient back under Hospice vs SNF level of care. Original Note: This patient currently resides at [facility] level of care. MD and patient did have discussion regarding Hospice Care: patient is agreeable at this time. Patient information will be faxed to [facility] and [facility] Lee this AM. Patient could be ready for discharge later today.
--- NOTE | 2022-06-11 09:52 | EXP.CARD.CON ---
History of Present Illness History of Present Illness Consult date: 06/11/22 Requesting physician: Riley Rogers Chief complaint: Right side of body hurts Additional Medical History:: Nephrectomy Gross hematuria while on plavix PAD- Recent stent to left iliofemoral system. Persistent disease to the right common femoral and right SFA present and not amendable to percutaneous intervention and is inoberable due to extent of disease. PAD maintaned on aspirin only due to hematuria CAD hx of CABG Hx of bladder mass and bladder cancer HTN DM II RBBB on EKG Current right foot cellulitis Interventional Vascular procedure 04/2022 MPRESSION Severe to critical disease to the left iliofemoral system with successful stenting and revascularization of the left iliofemoral system reducing the stenoses with 2 bare-metal stents 1 being balloon mounted to the other being self-expanding Persistent critical disease in the right common femoral artery and right superficial femoral artery which is not eligible for percutaneous revascularization PLAN 1. Aspirin and Plavix for now 2. Given the critical nature and limb threatening ischemia of patient's right leg it is reasonable for patient to be evaluated by the vascular surgeon although I do not believe he is going to be a surgical candidate as a femoral artery endarterectomy is unlikely to be able to extend all the way into the SFA where the disease is equally severe and involving.? May be more reasonable to have a vascular surgeon evaluate the films to determine if they feel patient has any type of surgical option.? It is my opinion that surgery is not going to benefit this gentleman however it may be worthwhile to ask a surgeon.? If the surgeon is unwilling to proceed surgically I would continue with supportive care and palliative care.? Unfortunately I suspect an [id number] amputation may occur due to the severe ischemic nature of his disease History of present illness: 82-year-old white male presented to ER on 06/09 per EMS from [facility]. EMS crew reported to ED the patient had no complaints and reported only came to ER because nurse told him to. ED labs significant for WBC 13.1 hemoglobin 8.6 which has trended stable, sodium 135, potassium 5.3, creatinine 1.4 which is trended to 2, AST 460, ALT 323, total bili 1.5, initial troponin of 1.07 trending to 1.96. Patient was admitted to the hospital for NSTEMI and KYM. EKG on admission shows sinus tachycardia 101 with a right bundle branch block. Patient reports he does remember having some right shoulder pain prior to coming to ER but is unable to tell me more details regarding the. Patient also complains chronic right lower extremity pain, with current cellulitis to right foot. Patient currently denies chest pain. [facility] Medical History (Updated 06/11/22 @ 10:27 by Yanet Edmond APRN) Acute kidney failure Back pain Depression Hematuria History of chest pain Neoplasm of bladder Osteoarthritis PVD (peripheral vascular disease) Surgical History History of nephrectomy Social History (Updated 06/09/22 @ 12:15 by Natalie Castillo RN) Smoking Status: Former smoker second hand exposure: Yes alcohol intake: former substance use type: denies use current occupational status: retired Travel in the last 8 weeks: None household members: none housing: house caffeine: Yes Review of Systems Review of Systems Review of systems:: pertinent systems reviewed and negative unless documented below *Cardiovascular Comments: Right shoulder pain *Musculoskeletal Comments: Chronic right lower extremity pain. Exam Data for Last 24 hours Vital signs and Labs for Last 24 Hours: Temp Pulse Resp BP Pulse Ox 97.8 F 102 H 20 138/78 95 06/11/22 08:00 06/11/22 08:00 06/11/22 08:00 06/11/22 08:00 06/11/22 08:00 Laboratory Results - last 24 h
[2022-06-11 12:15] LABS: CATHL Activated Clotting Time 237 SEC (74-125)
--- NOTE | 2022-06-11 13:03 | EXP.HP ---
History of Present Illness *Admission Date: 06/09/22 *Reason for visit:: ext pain *History of present illness: this patient presented to [facility] with weakness and increased pain rt lower ext - pt has sig pvd - pt was seen in the ed and noted to have cellulitis rt foot and elevated card enz consistent with nonstemi [facility] Medical History (Updated 06/11/22 @ 10:27 by Yanet Edmond APRN) Acute kidney failure Back pain Depression Hematuria History of chest pain Neoplasm of bladder Osteoarthritis PVD (peripheral vascular disease) Surgical History History of nephrectomy Social History (Updated 06/09/22 @ 12:15 by Natalie Castillo, RN) Smoking Status: Former smoker second hand exposure: Yes alcohol intake: former substance use type: denies use current occupational status: retired Travel in the last 8 weeks: None household members: none housing: house caffeine: Yes Review of Systems Review of Systems Review of systems:: pertinent systems reviewed and negative unless documented below Meds Home Medications and Allergies Home Medications Medication Instructions Recorded Confirmed Type levothyroxine 50 mcg tablet 50 mcg PO DAILY THYROID 03/22/22 06/09/22 History aspirin 81 mg tablet,delayed 81 mg PO DAILY Heart disease 05/15/22 06/09/22 History release loperamide 2 mg capsule 2 mg PO Q6HP PRN Diarrhea 05/15/22 06/09/22 History ondansetron 4 mg disintegrating 4 mg PO TIDP PRN nausea 05/15/22 06/09/22 History tablet bisoprolol fumarate 5 mg tablet 5 mg PO DAILY High blood pressure 06/09/22 06/09/22 History buspirone 5 mg tablet 5 mg PO BID Anxiety 06/09/22 06/09/22 History diclofenac sodium 1 % topical gel 2 gm topical QID Pain 06/09/22 06/09/22 History fluoxetine 20 mg capsule (Prozac) 20 mg PO DAILY MOOD 06/09/22 06/09/22 History hydrocodone 7.5 mg-acetaminophen 1 tab PO QID Pain 06/09/22 06/09/22 History 325 mg tablet tamsulosin 0.4 mg capsule 0.4 mg PO DAILY BLADDER 06/09/22 06/09/22 History New Prescriptions to Start Prescriptions: Allergies Allergy/AdvReac Type Severity Reaction Status Date / Time No Known Allergies Allergy Verified 05/29/22 10:47 Exam Data for Last 24 hours Vital signs and Labs for Last 24 Hours: Temp Pulse Resp BP Pulse Ox 97.8 F 93 H 18 122/72 100 06/11/22 08:00 06/11/22 12:59 06/11/22 12:59 06/11/22 12:59 06/11/22 12:59 Laboratory Results - last 24 hr 06/10/22 16:02: POC Glucose 182 H 06/10/22 20:43: POC Glucose 159 H 06/11/22 05:15: POC Glucose 137 H 06/11/22 07:16: WBC 15.1 H, RBC 2.85 L, Hgb 8.5 L, Hct 27.3 L, MCV 95.6 H, MCH 29.7, MCHC 31.1 L, RDW 16.8, Plt Count 332, MPV 9.3, Neut % (Auto) 92.1 H, Lymph % (Auto) 4.3 L, [place] % (Auto) 3.0, Eos % (Auto) 0.3, Baso % (Auto) 0.3, Neut # (Auto) 13.9 H, Lymph # (Auto) 0.7, [place] # (Auto) 0.5, Eos # (Auto) 0.0, Baso # (Auto) 0.1, Total Counted 100, Neutrophils % (Manual) 94 H, Lymphocytes % (Manual) 5 L, Monocytes % (Manual) 1 L, Platelet Estimate Normal, Hypochromasia 1+, Anisocytosis 1+, Macrocytosis 1+, Ovalocytes 1+ 06/11/22 07:16: Sodium 138, Potassium 4.6, Chloride 107, Carbon Dioxide 19 L, Anion Gap 16.6 H, BUN 76 H, Creatinine 2.00 H, Estimated Creat Clear 33, Estimated GFR 32 L, Est GFR ( Amer) 39 L, Glucose 145 H, Calcium 7.8 L, Troponin I 1.96 H 06/11/22 11:52: Activated Clotting Time 237 H* I & O for Last 24 hours: Intake & Output 06/09/22 06/10/22 06/11/22 06/12/22 11:59 11:59 11:59 11:59 Intake Total 1857 / 1857 3084 / 3084 Output Total 375 / 375 0 / 0 Balance 1482 / 1482 3084 / 3084 Weight 159 lb 179 lb 8 oz 184 lb 12.8 oz Microbiology Reports for the Last 24 Hours: Microbiology 06/09/22 04:58 Urine,Clean Catch Urine Culture - Preliminary NO GROWTH AFTER 24 HOURS Constitutional Constitutional: no acute distress, average body habitus and coop
--- NOTE | 2022-06-11 13:11 | EXP.ACUTE.PN ---
Subjective *Date: 06/12/22 *Time: 07:46 Interval history: pt with ongoing pain rt lower ext - was seen by card and will have ht cath- Medical Exam Vital signs and Labs for Last 24 Hours: Temp Pulse Resp BP Pulse Ox 97.8 F 92 H 18 132/71 100 06/11/22 08:00 06/11/22 13:02 06/11/22 13:02 06/11/22 13:02 06/11/22 13:02 Laboratory Results - last 24 hr 06/10/22 16:02: POC Glucose 182 H 06/10/22 20:43: POC Glucose 159 H 06/11/22 05:15: POC Glucose 137 H 06/11/22 07:16: WBC 15.1 H, RBC 2.85 L, Hgb 8.5 L, Hct 27.3 L, MCV 95.6 H, MCH 29.7, MCHC 31.1 L, RDW 16.8, Plt Count 332, MPV 9.3, Neut % (Auto) 92.1 H, Lymph % (Auto) 4.3 L, [place] % (Auto) 3.0, Eos % (Auto) 0.3, Baso % (Auto) 0.3, Neut # (Auto) 13.9 H, Lymph # (Auto) 0.7, [place] # (Auto) 0.5, Eos # (Auto) 0.0, Baso # (Auto) 0.1, Total Counted 100, Neutrophils % (Manual) 94 H, Lymphocytes % (Manual) 5 L, Monocytes % (Manual) 1 L, Platelet Estimate Normal, Hypochromasia 1+, Anisocytosis 1+, Macrocytosis 1+, Ovalocytes 1+ 06/11/22 07:16: Sodium 138, Potassium 4.6, Chloride 107, Carbon Dioxide 19 L, Anion Gap 16.6 H, BUN 76 H, Creatinine 2.00 H, Estimated Creat Clear 33, Estimated GFR 32 L, Est GFR ( Amer) 39 L, Glucose 145 H, Calcium 7.8 L, Troponin I 1.96 H 06/11/22 11:52: Activated Clotting Time 237 H* I & O for Labs for Last 24 Hours: Intake & Output 06/09/22 06/10/22 06/11/22 06/12/22 11:59 11:59 11:59 11:59 Intake Total 1857 / 1857 3084 / 3084 Output Total 375 / 375 0 / 0 Balance 1482 / 1482 3084 / 3084 Weight 159 lb 179 lb 8 oz 184 lb 12.8 oz Microbiology Reports for the Last 24 Hours: Microbiology 06/09/22 04:58 Urine,Clean Catch Urine Culture - Preliminary NO GROWTH AFTER 24 HOURS Head: Present normocephalic ENT: Present mucous membranes moist Neck: Present trachea midline Respiratory: Present CTA bilaterally Cardiac: Present Reg Rate and Rhythm GI: Present soft Extremities: Present other (changes rt lower leg ) Comment:: changes rt foot Neuro: Present Cranial Nerve 2-12 Intact
--- NOTE | 2022-06-11 14:19 | PC.NURSE ---
Patient VSS 2L NC sats 90-94%; return from Heart Cath no stents to the heart and 1 stent to the right renal artery. Sheath site left groin dressing c/d/i. Patient up at 1930. No s/s of acute distress noted, bed at lowest level for safety, call light within reach.
[2022-06-11 16:41] LABS: POC Glucose,Bedside 163 (70-110)
--- NOTE | 2022-06-11 17:59 | PC.NURSE ---
shift summary: received report from Matt Oates around 4pm. GCS 15. Went to cathlab. Left groin site CDI. Denies pain and dyspnea. On 2L NC. VSS. NSR on tele. NS infusing @ 100mL/hr. Incontinent of B/B. No BM today. Bed alarm on. Is a 2 person assist.
[2022-06-11 21:39] LABS: POC Glucose,Bedside 159 (70-110)
--- NOTE | 2022-06-11 22:02 | PC.NURSE ---
DSG to RLE changed. Pt is currently resting in bed. Cath site DSG C/D/I. Ate pudding. Heels elevated on pillows. Call light within reach.
[2022-06-12] VITALS (8 sets, daily range): BP systolic 102–132; BP diastolic 60–69; PULSE 82–110; RESP 16–18; TEMP 36.5–36.8; O2SAT 91–95; BMI 25.1
--- NOTE | 2022-06-12 05:38 | PC.NURSE ---
Femoral cath site with DSG is C/D/I. DSG replaced this shift to RLE. Remains C/D/I. Pt has been incontinent of urine and bowels this shift. Has been turned/repositioned Q2. Pt has c/o soa and cough. Remains on 2L O2 NC. Lungs are diminished. VSS. Pt is Sinus tach on telemetry. Call light within reach. Safety measures in place.
[2022-06-12 06:02] LABS: POC Glucose,Bedside 182 (70-110)
[2022-06-12 07:07] LABS: Basophils % 0.3 % (0.1-2.0); Eosinophils % 0.3 % (0.1-12.0); Hematocrit 28.3 % (42.0-52.0); Hemoglobin 8.9 g/dL (14.1-18.0); Lymphocytes # 0.7 K/mm3 (0.7-4.5); Lymphocytes % 5.4 % (10-50); Mean Corpuscular HGB Conc 31.4 g/dL (31.8-35.4); Mean Corpuscular Hemoglobin 30.4 pg (27.0-31.2); Mean Corpuscular Volume 96.8 fl (80-94); Mean Platelet Volume 9.1 fl (7.4-10.4); Monocytes # 0.5 K/mm3 (0.1-1.0); Neutrophils % 90.1 % (37.0-80.0); Platelet Count 362 K/mm3 (142-424); Red Blood Count 2.92 M/mm3 (4.60-6.20); Red Cell Distribution Width 17.2 % (11.5-17.5); White Blood Count 13.3 K/mm3 (4.8-10.8)
[2022-06-12 07:18] LABS: MANUAL DIFFERENTIAL MANUAL DIFFERENTIAL (MANUAL DIFF)
[2022-06-12 07:19] LABS: Chloride 110 mmol/L (98-107); Sodium 141 mmol/L (136-145)
[2022-06-12 07:20] LABS: Potassium 4.3 mmoL/L (3.5-5.1)
[2022-06-12 07:22] LABS: Blood Urea Nitrogen 63 mg/dl (9-20); Creatinine Clearance Estimated 44 mL/min (50-200); Estimated Glomerular Filt Rate 45 ml/min (>60); GFR (African American) 54 ML/MIN (>60)
[2022-06-12 07:23] LABS: Anion Gap 16.3 mEq/L (5-15); Calcium 7.5 mg/dl (8.4-10.2); Carbon Dioxide 19 mmol/L (22.0-30.0); Glucose 153 mg/dl (74-100)
[2022-06-12 08:14] LABS: Anisocytosis 1+; Hypochromasia 1+; Lymphocytes % 6 % (10-50); Macrocytosis 1+; Monocytes % 5 % (2-9); Neutrophils % 89 % (42-76); Ovalocytes 1+; Platelet Estimate Normal; Total Cells Counted 100
--- NOTE | 2022-06-12 09:19 | EXP.CARD.PN ---
Subjective Subjective Date: 06/12/22 Time: 08:00 Principal diagnosis: Elevated trop, stevie Interval history: s/p LHC yesterday, see report below. Labs improving: creatinine 1.50 from 2 IMPRESSION Widely patent coronary arteries as described above with excellent surgical revascularization Reduced ejection fraction Normal left ventricular end-diastolic pressure Severe right renal artery stenosis Successful stent to the right renal artery severe disease reduced to 0% with 1 bare-metal stent Mostly patent left renal artery supplying the majority of the parenchyma with severe stenoses in my [place] branches supplying the left kidney PLAN 1. Aspirin only 81 mg daily 2. Continue medical management 3. Supportive care for coronary artery disease and congestive heart failure Echo 06/11 Conclusion 1.? Technically difficult and challenging study.? Biatrial enlargement, normal left ventricular size, mild concentric left ventricular hypertrophy, estimated ejection fraction 50% with no regional wall motion abnormality, there is flattening of the interventricular septum during systole and diastole consistent with pressure and volume overload in right ventricle.? Doppler evidence of low cardiac output state seen. 2.? Moderately enlarged right ventricle with moderately reduced contractility. 3.? Moderate mitral and tricuspid regurgitation, calculated right ventricular systolic pressure is 50 mmHg. 4.? No significant pericardial effusion. 5.? Inferior vena cava is dilated without significant inspiratory collapse. Exam Data for Last 24 hours Vital signs and Labs for Last 24 Hours: Temp Pulse Resp BP Pulse Ox 97.7 F 110 H 16 132/69 94 L 06/12/22 07:50 06/12/22 07:50 06/12/22 07:50 06/12/22 07:50 06/12/22 07:50 Laboratory Results - last 24 hr 06/11/22 11:52: Activated Clotting Time 237 H* 06/11/22 16:28: POC Glucose 163 H 06/11/22 21:14: POC Glucose 159 H 06/12/22 05:48: POC Glucose 182 H 06/12/22 06:25: WBC 13.3 H, RBC 2.92 L, Hgb 8.9 L, Hct 28.3 L, MCV 96.8 H, MCH 30.4, MCHC 31.4 L, RDW 17.2, Plt Count 362, MPV 9.1, Neut % (Auto) 90.1 H, Lymph % (Auto) 5.4 L, [place] % (Auto) 4.0, Eos % (Auto) 0.3, Baso % (Auto) 0.3, Neut # (Auto) 12.0 H, Lymph # (Auto) 0.7, [place] # (Auto) 0.5, Eos # (Auto) 0.0, Baso # (Auto) 0.0, Total Counted 100, Neutrophils % (Manual) 89 H, Lymphocytes % (Manual) 6 L, Monocytes % (Manual) 5, Platelet Estimate Normal, Hypochromasia 1+, Anisocytosis 1+, Macrocytosis 1+, Ovalocytes 1+ 06/12/22 06:25: Sodium 141, Potassium 4.3, Chloride 110 H, Carbon Dioxide 19 L, Anion Gap 16.3 H, BUN 63 H, Creatinine 1.50 H D, Estimated Creat Clear 44, Estimated GFR 45 L, Est GFR ( Amer) 54 L D, Glucose 153 H, Calcium 7.5 L I & O for Last 24 hours: Intake & Output 06/09/22 06/10/22 06/11/22 06/12/22 23:59 23:59 23:59 23:59 Intake Total 360 / 360 3472 / 3472 2528 / 2528 1402 / 1402 Output Total 375 / 375 0 / 0 Balance 360 / 10 3097 / 3097 2528 / 2528 1402 / 1402 Weight 175 lb 6 oz 179 lb 8 oz 184 lb 12.663 oz 185 lb 11.2 oz Microbiology Reports for the Last 24 Hours: Microbiology 06/09/22 04:58 Urine,Clean Catch Urine Culture - Final NO GROWTH AFTER 48 HOURS Constitutional Constitutional: no acute distress *Routine Respiratory Exam Respiratory: Present CTA bilaterally and symmetric chest movement *Routine Cardiovascular Exam Cardiovascular: Present RRR, Normal S1 and Normal S2 *Routine Abdominal Exam Abdominal: Present soft and normoactive bowel sounds; Absent tenderness *Routine Extremities Exam Extremities: Absent edema *Routine Skin Exam Skin: Present intact, dry and warm Detailed Neck Exam: Thyroids Thyroid: Absent bruit Progress Note: A&P Assessment and plan (1) PVD (peripheral vascular disease): Status: Acute (2) Coronary artery disease: Status: Acute (3) History of coronary artery bypass graft: Status: Acute (4) Hypertension: Status: Ac
--- NOTE | 2022-06-12 09:30 | CT_ITS ---
FINAL REPORT CLINICAL HISTORY: ? osteomylitis COMPARISON: Plain films from the same day FINDINGS: CT RIGHT FOOT WITHOUT CONTRAST Technique: Axial images through the right foot were performed by computed tomography. Sagittal and coronal reconstruction images were performed. This study was performed with techniques to keep radiation doses as low as reasonably achievable (ALARA). Individualized dose reduction techniques using automated exposure control or adjustment of mA and/or kV according to the patient's size were employed. No fracture is identified. No dislocation identified. There are degenerative changes greatest in the midfoot. There are soft tissue calcifications of the midfoot. There are chronic appearing erosions of the midfoot versus subchondral cysts. 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 Chronic appearing erosions versus subchondral cysts of the midfoot. Reviewed, Interpreted and Dictated by Sim Hernandez III, MD Transcribed by Babar Shepherd Authenticated and [facility]
--- NOTE | 2022-06-12 10:36 | XR_ITS ---
FINAL REPORT CLINICAL HISTORY: Gangrene FINDINGS: Left foot Three views were obtained. There is no acute fracture or dislocation. There are mild degenerative changes. No soft tissue abnormality is identified. IMPRESSION: No acute process. Reviewed, Interpreted and Dictated by Sim Hernandez III, MD Transcribed by Zehra Guerra Authenticated and [facility]
--- NOTE | 2022-06-12 10:36 | XR_ITS ---
FINAL REPORT CLINICAL HISTORY: Gangrene FINDINGS: Right foot Three views were obtained. There is no acute fracture or dislocation. There are mild degenerative changes. No soft tissue abnormality is identified. There is a plantar calcaneal spur. IMPRESSION: No acute process. Reviewed, Interpreted and Dictated by Sim Hernandez III, MD Transcribed by Zehra Guerra Authenticated and [facility]
[2022-06-12 11:33] LABS: Erythrocyte Sedimentation Rate > 140 mm/hr (0-20)
--- NOTE | 2022-06-12 11:59 | CARE MANAGER ---
Received phone call from APS worker Obie Choudhary that they are working on talking to family members about taking guardianship for this patient. APS worker Soco stated that she went to [place] and did a mini-mental on this patient on June 08 in which he failed. [place] did call in the referral for self neglect on Saturday06/08/22. Obie is working on talking with family members on becoming guardian.
[2022-06-12 12:17] LABS: POC Glucose,Bedside 168 (70-110)
[2022-06-12 12:17] LABS: Vancomycin,Trough 7.5 ug/mL (5.0-10.0)
--- NOTE | 2022-06-12 13:01 | EXP.ORTH.CON ---
History of Present Illness *Admission Date: 06/09/22 *Reason for visit:: right heel gangrene, pressure ulcer, DM foot infection *History of present illness: this patient presented [facility] from f with weakness and increased pain rt lower ext - pt has sig pvd - pt was seen in the ed and noted to have cellulitis rt foot and elevated card enz consistent with nonstemi - Podiatry: consulted by Dr Mejia for evaluation of right heel ulcer. Patient was resting in bed, swallow breathing. He reports being frustrated and just wants to already . [facility] Medical History Acute kidney failure Back pain Depression Hematuria History of chest pain Neoplasm of bladder Osteoarthritis PVD (peripheral vascular disease) Surgical History History of nephrectomy Social History Smoking Status: Former smoker second hand exposure: Yes alcohol intake: former substance use type: denies use current occupational status: retired Travel in the last 8 weeks: None household members: none housing: house caffeine: Yes Review of Systems Review of Systems Review of systems:: pertinent systems reviewed and negative unless documented below Constitutional Constitutional: Reports system reviewed and no additional complaints, except as documented and Reports weakness Eyes Eyes: Reports system reviewed and no additional complaints, except as documented ENT Ears, Nose, Mouth, and Throat: Reports system reviewed and no additional complaints, except as documented and Reports dry mouth *Cardiovascular Cardiovascular: Reports system reviewed and no additional complaints, except as documented, Reports dyspnea and Reports orthopnea Comments: Right shoulder pain *Respiratory Respiratory: Reports system reviewed and no additional complaints, except as documented and Reports dyspnea *Gastrointestinal Gastrointestinal: Reports system reviewed and no additional complaints, except as documented *Genitourinary Genitourinary: Reports system reviewed and no additional complaints, except as documented *Musculoskeletal Musculoskeletal: Reports system reviewed and no additional complaints, except as documented, Reports back pain, Reports joint swelling and Reports muscle weakness Comments: Chronic right lower extremity pain. Integumentary/Breasts Skin/Breast: Reports system reviewed and no additional complaints, except as documented and Reports skin ulcer (right foot ulcer) *Neurologic Neurologic: Reports system reviewed and no additional complaints, except as documented, Reports paresthesias and Reports weakness Psychiatric Psychiatric: Reports system reviewed and no additional complaints, except as documented and Reports depression Endocrine Endocrine: Reports system reviewed and no additional complaints, except as documented Hematologic/Lymphatic Hematologic/Lymphatic: Reports system reviewed and no additional complaints, except as documented Allergic/Immunologic Allergic/Immunologic: Reports system reviewed and no additional complaints, except as documented Meds Home Medications and Allergies Home Medications Medication Instructions Recorded Confirmed Type levothyroxine 50 mcg tablet 50 mcg PO DAILY THYROID 03/22/22 06/09/22 History aspirin 81 mg tablet,delayed 81 mg PO DAILY Heart disease 05/15/22 06/09/22 History release loperamide 2 mg capsule 2 mg PO Q6HP PRN Diarrhea 05/15/22 06/09/22 History ondansetron 4 mg disintegrating 4 mg PO TIDP PRN nausea 05/15/22 06/09/22 History tablet bisoprolol fumarate 5 mg tablet 5 mg PO DAILY High blood pressure 06/09/22 06/09/22 History buspirone 5 mg tablet 5 mg PO BID Anxiety 06/09/22 06/09/22 History diclofenac sodium 1 % topical gel 2 gm topical QID Pain 06/09/22 06/09/22 History fluoxetine 20 mg capsule (Prozac) 20 mg PO DAILY MOOD 06/09/22 06/09/22 Histo
--- NOTE | 2022-06-12 13:06 | P.PN_ITS ---
Subjective *Date: 06/12/22 *Time: 13:06 Interval history: pt doing ok but still has changes/pain rt foot - podiatry consult and has been seen by card - possible hospice Medical Exam Vital signs and Labs for Last 24 Hours: Temp Pulse Resp BP Pulse Ox 97.9 F 88 17 102/60 L 95 06/12/22 11:16 06/12/22 11:16 06/12/22 11:16 06/12/22 11:16 06/12/22 11:16 Laboratory Results - last 24 hr 06/11/22 16:28: POC Glucose 163 H 06/11/22 21:14: POC Glucose 159 H 06/12/22 05:48: POC Glucose 182 H 06/12/22 06:25: WBC 13.3 H, RBC 2.92 L, Hgb 8.9 L, Hct 28.3 L, MCV 96.8 H, MCH 30.4, MCHC 31.4 L, RDW 17.2, Plt Count 362, MPV 9.1, Neut % (Auto) 90.1 H, Lymph % (Auto) 5.4 L, [place] % (Auto) 4.0, Eos % (Auto) 0.3, Baso % (Auto) 0.3, Neut # (Auto) 12.0 H, Lymph # (Auto) 0.7, [place] # (Auto) 0.5, Eos # (Auto) 0.0, Baso # (Auto) 0.0, Total Counted 100, Neutrophils % (Manual) 89 H, Lymphocytes % (Manual) 6 L, Monocytes % (Manual) 5, Platelet Estimate Normal, Hypochromasia 1+, Anisocytosis 1+, Macrocytosis 1+, Ovalocytes 1+ 06/12/22 06:25: Sodium 141, Potassium 4.3, Chloride 110 H, Carbon Dioxide 19 L, Anion Gap 16.3 H, BUN 63 H, Creatinine 1.50 H D, Estimated Creat Clear 44, Estimated GFR 45 L, Est GFR ( Amer) 54 L D, Glucose 153 H, Calcium 7.5 L 06/12/22 06:25: ESR > 140 H 06/12/22 11:20: Vancomycin Trough 7.5 06/12/22 11:50: POC Glucose 168 H I & O for Labs for Last 24 Hours: Intake & Output 06/10/22 06/11/22 06/12/22 06/13/22 11:59 11:59 11:59 11:59 Intake Total 1857 / 1857 3084 / 3084 2821 / 2821 Output Total 375 / 375 0 / 0 0 / 0 Balance 1482 / 1482 3084 / 3084 2821 / 2821 Weight 179 lb 8 oz 184 lb 12.8 oz 185 lb 11.2 oz Microbiology Reports for the Last 24 Hours: Microbiology 06/09/22 04:58 Urine,Clean Catch Urine Culture - Final NO GROWTH AFTER 48 HOURS ENT: Present normal oropharynx Neck: Present trachea midline Respiratory: Absent CTA bilaterally Cardiac: Present Reg Rate and Rhythm GI: Present soft Comment:: changes rt foot and rt lower leg with cellulitis and pvd Skin: Present erythema
[2022-06-12 13:08] LABS: C-Reactive Protein 134.1 mg/L (0-4)
--- NOTE | 2022-06-12 14:39 | P.CONPHA_ITS ---
Pharmacy Consult Date: 06/12/22 Time: 14:40 Referring provider: DR. ADLER Reason for Consult:: VANCOMYCIN LEVEL Allergies Allergy/AdvReac Type Severity Reaction Status Date / Time No Known Allergies Allergy Verified 05/29/22 10:47 Home Medications Medication Instructions Recorded Confirmed Type levothyroxine 50 mcg tablet 50 mcg PO DAILY THYROID 03/22/22 06/09/22 History aspirin 81 mg tablet,delayed 81 mg PO DAILY Heart disease 05/15/22 06/09/22 History release loperamide 2 mg capsule 2 mg PO Q6HP PRN Diarrhea 05/15/22 06/09/22 History ondansetron 4 mg disintegrating 4 mg PO TIDP PRN nausea 05/15/22 06/09/22 History tablet bisoprolol fumarate 5 mg tablet 5 mg PO DAILY High blood pressure 06/09/22 06/09/22 History buspirone 5 mg tablet 5 mg PO BID Anxiety 06/09/22 06/09/22 History diclofenac sodium 1 % topical gel 2 gm topical QID Pain 06/09/22 06/09/22 History fluoxetine 20 mg capsule (Prozac) 20 mg PO DAILY MOOD 06/09/22 06/09/22 History hydrocodone 7.5 mg-acetaminophen 1 tab PO QID Pain 06/09/22 06/09/22 History 325 mg tablet tamsulosin 0.4 mg capsule 0.4 mg PO DAILY BLADDER 06/09/22 06/09/22 History New Prescriptions to Start Prescriptions: Height: 1.83 m Weight: 84.232 kg Laboratory Results:: Laboratory Results - last 24 hr 06/11/22 16:28: POC Glucose 163 H 06/11/22 21:14: POC Glucose 159 H 06/12/22 05:48: POC Glucose 182 H 06/12/22 06:25: WBC 13.3 H, RBC 2.92 L, Hgb 8.9 L, Hct 28.3 L, MCV 96.8 H, MCH 30.4, MCHC 31.4 L, RDW 17.2, Plt Count 362, MPV 9.1, Neut % (Auto) 90.1 H, Lymph % (Auto) 5.4 L, [place] % (Auto) 4.0, Eos % (Auto) 0.3, Baso % (Auto) 0.3, Neut # (Auto) 12.0 H, Lymph # (Auto) 0.7, [place] # (Auto) 0.5, Eos # (Auto) 0.0, Baso # (Auto) 0.0, Total Counted 100, Neutrophils % (Manual) 89 H, Lymphocytes % (Manual) 6 L, Monocytes % (Manual) 5, Platelet Estimate Normal, Hypochromasia 1+, Anisocytosis 1+, Macrocytosis 1+, Ovalocytes 1+ 06/12/22 06:25: Sodium 141, Potassium 4.3, Chloride 110 H, Carbon Dioxide 19 L, Anion Gap 16.3 H, BUN 63 H, Creatinine 1.50 H D, Estimated Creat Clear 44, Estimated GFR 45 L, Est GFR ( Amer) 54 L D, Glucose 153 H, Calcium 7.5 L 06/12/22 06:25: ESR > 140 H 06/12/22 06:25: C-Reactive Protein 134.1 H 06/12/22 11:20: Vancomycin Trough 7.5 06/12/22 11:50: POC Glucose 168 H Medical History: Medical History (Updated 06/12/22 @ 13:12 by Mallory Victoria DPM) Acute kidney failure Back pain Depression Hematuria History of chest pain Neoplasm of bladder Osteoarthritis PVD (peripheral vascular disease) Assessment and Plan Assessment and plan all Dx Assessment and Plan for all problems:: VANCOMYCIN LEVEL 7.5 MCG/ML TODAY WITH VANCOMYCIN 1250 MG Q36H. RECOMMEND [facility] VANCOMYCIN DOSE TO 1250 MG Q24H AT THIS TIME. WILL OBTAIN TROUGH LEVEL TOMORROW.
--- NOTE | 2022-06-12 17:10 | PC.NURSE ---
[facility] contacted. Spoke to Tona Pulido. Pt ruled out for donation.
--- NOTE | 2022-06-12 18:28 | P.DN_ITS ---
Pronouncement Note Date and Time of Date of : 06/12/22 Time of : 16:27 PCOD Preliminary cause of : Cardiac arrest Contributing Factors (1) PVD (peripheral vascular disease): (2) Coronary artery disease: (3) History of coronary artery bypass graft: (4) Hypertension: (5) Tachycardia: (6) Elevated troponin: (7) KYM (acute kidney injury): (8) Elevated liver enzymes: Additional Data Confirmation of : no pulse, no respirations, no heart sounds and pupils fixed and dilated Family: contacted Attending/PCP notified?: Yes Attending physician: Андрей Mejia MD Was code activated?: No Autopsy requested?: No examiner rating clerk notified?: No Organ bank notified?: Yes Advance directives: No
--- NOTE | 2022-06-13 07:58 | PC.NURSE ---
Late entry: patient primary nurse veronica rn; patient time of was 06/12/22 at 1627. Body was released to [facility] home on 06/12/22 at 1740
--- NOTE | 2022-06-13 08:07 | EXP.DEATH.DS ---
Discharge Sum: Prov Provider Primary care physician: Андрей Mejia MD Visit Care Team Role Provider Type Mallory Victoria DPM Other Providers Staff Physician Darion Deleon MD Other Providers Staff Physician ANGELICA Block Other Providers Physician Driller'S Assistant Jean-Pierre Nails MD Other Providers Staff Physician Yanet Edmond APRN Other Providers Nurse Practitioner Lila Newell APRN Other Providers Nurse Practitioner Андрей Mejia MD Admit Provider Staff Physician Attending Provider Emergency Provider Other Providers Primary Care Provider Consults: 06/11/22 06:35 Cardiology Consult [Consult to Cardiology] [CONS] Routine Consulting Provider: Cardiology Reason For Consult: nonstemi 06/11/22 08:09 Consult to Hospice [CONS] Routine Comment: Hospice consult Consulting Provider: Андрей Mejia 06/11/22 12:38 Consult to Cardiac Rehabilitation [CONS] Routine Reason For Consult: stented artery 06/12/22 09:31 Podiatry Consult [Consult to Podiatry] [CONS] Routine Consulting Provider: Mallory Victoria Reason For Consult: infected foot Pronouncing clinician: Fernie De Jesus Discharge Sum: Diag Contributing Factors (1) PVD (peripheral vascular disease): (2) Coronary artery disease: (3) History of coronary artery bypass graft: (4) Hypertension: (5) Tachycardia: (6) Elevated troponin: (7) KYM (acute kidney injury): (8) Elevated liver enzymes: Discharge Sum: Summary Date and Time Date of admission: 06/10/22 07:30 Additional Data Attending physician: Андрей Mejia MD
--- NOTE | 2022-06-13 08:37 | EXP.DC.SUM ---
General Admission date:: 06/10/22 Discharge date: 06/12/22 HPI HPI HPI: this patient presented to [facility] from f with weakness and increased pain rt lower ext - pt has sig pvd - pt was seen in the ed and noted to have cellulitis rt foot and elevated card enz consistent with nonstemi - Podiatry: consulted by Dr Mejia for evaluation of right heel ulcer. Patient was resting in bed, swallow breathing. He reports being frustrated and just wants to already . Hospital Course Hospital Course Hospital Course: 82-year-old male patient presented to [facility] from f via EMS with weakness and increased pain rt lower ext - pt has sig pvd - pt was seen in the ed and noted to have cellulitis rt foot and elevated card enz consistent with nonstemi - 06/11/22 cardiac catheterization: ANGIOGRAPHIC RESULTS The left main artery Is distally subtotally occluded The left anterior descending artery Occluded The circumflex artery Occluded The right coronary artery Is occluded proximally The VASQUES ventriculogram reveals Reduced ejection fraction estimated 40% The left ventricular end-diastolic pressure 10 mmHg WOODARD is a large graft and anastomoses onto a first diagonal artery and then skips to the mid LAD.? A Y graft originates off the midportion of the WOODARD and then makes anastomosis on 2 a terminal obtuse marginal artery off the circumflex artery and then skips over to the posterior descending artery Right renal artery singular and has an ostial eccentric 80% calcified stenosis Left renal artery has multiple arterial supplies the main portion supplying the left kidney is widely patent while 2 smaller branches appear to be severely stenosed proximally but are less than 2 mm in diameter IMPRESSION Widely patent coronary arteries as described above with excellent surgical revascularization Reduced ejection fraction Normal left ventricular end-diastolic pressure Severe right renal artery stenosis Successful stent to the right renal artery severe disease reduced to 0% with 1 bare-metal stent Mostly patent left renal artery supplying the majority of the parenchyma with severe stenoses in my [place] branches supplying the left kidney PLAN 1. Aspirin only 81 mg daily 2. Continue medical management 3. Supportive care for coronary artery disease and congestive heart failure Electronically signed by : Darion Deleon MD? Podiatry: Plan Right heel pressure ulcer: -04/20/2022, lower extremity runoff per Dr. Deleon -05/15/22 cardiology outpatient appointment they referred patient to [facility], vascular surgery -Consulted today for right heel ulcer, gangrene -X-ray of bilateral feet taken and reviewed by myself.? Degenerative changes consistent with osteoarthritis noted.? No acute fracture or dislocation. -CT right foot without contrast evaluated.? Soft tissue defect noted at the heel consistent with ulceration.? Report reviewed. FINDINGS: CT RIGHT FOOT WITHOUT CONTRAST? Technique: Axial images through the? right foot were performed by computed tomography.? Sagittal and coronal reconstruction images were performed. This study was performed with techniques to keep radiation doses as low as reasonably achievable (ALARA). Individualized dose reduction techniques using automated exposure control or adjustment of mA and/or kV according to the patient's size were employed.? No fracture is identified.? No dislocation identified.? There are degenerative changes greatest in the midfoot.? There are soft tissue calcifications of the midfoot.? There are chronic appearing erosions of the midfoot versus subchondral cysts. 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 Chronic appearing erosions versus subchondral cysts of the midfoot. -I discussed with the patient the importance of proper hygiene and maintaining a clean healthy wound bed to avoid the infection spreading. The wound was madeline
== END 2022-06-12 16:27 | disposition expired | DRG 253 ==
LOC: ER 06-09 05:26 → 2ND 06-09 10:58
PROVIDERS: Emergency Medicine; Internal Medicine; Podiatrist; Admitting Provider Emergency Medicine; Emergency Provider Emergency Medicine; PCP Emergency Medicine; Visit Provider Emergency Medicine
PROC: 4A023N7 Measurement of Cardiac Sampling and Pressure, Left Heart, Percutaneous Approach (ICD-10-PCS; principal; 2022-06-11 11:30)
DX: I21.4 Non-ST elevation (NSTEMI) myocardial infarction (principal); I45.2 Bifascicular block; I70.92 Chronic total occlusion of artery of the extremities; N17.9 Acute kidney failure, unspecified; L02.611 Cutaneous abscess of right foot; L03.115 Cellulitis of right lower limb; I70.1 Atherosclerosis of renal artery; Z95.1 Presence of aortocoronary bypass graft; I77.1 Stricture of artery; I70.213 Atherosclerosis of native arteries of extremities with intermittent claudication, bilateral legs; I10 Essential (primary) hypertension; Z79.899 Other long term (current) drug therapy; Z87.891 Personal history of nicotine dependence; Z85.51 Personal history of malignant neoplasm of bladder; M15.9 Polyosteoarthritis, unspecified; L89.610 Pressure ulcer of right heel, unstageable; E11.610 Type 2 diabetes mellitus with diabetic neuropathic arthropathy; I25.10 Atherosclerotic heart disease of native coronary artery without angina pectoris
CPT/HCPCS: 93458; 36252; 37236; 36415; 73630; 73700; 80048; 80053; 80202; 81001; 82962; 84484; 85007; 85025; 85347; 85651; 86140; 87086; 93005; 93306; 93970; 99152; 99153; 99285; C1725; C1769; C1876; C1894; C9803; G0378; J1644; Q9967; U0003; U0005